=== PATIENT | male | born 1980 | race Caucasian/White ===

== ENCOUNTER 2019-01-01 09:00 | Outpatient (RCR) | payer OTHER, SELFPAY ==
--- NOTE | 2019-01-01 10:10 | BH.SGPN.GN ---
Behaviors/Verbalizations/Mental Status: [] Eye contact is good. Motor activity is appropriate. Appearance is causal. Speech is Appropriate. Mood is anxious. Affect is congruent. Thoughts are linear and logical. No evidence of psychosis. Client Response/Progress/Benefit: [] Pt was an active participant in group activity and discussion. Shared insight on quote of the day. Group worked together to define goals and identify the purpose of developing goals which included; identifying and making healthy changes or attempting to maintain a behavior. Group also identified barriers to setting and accomplishing goals which include; can be overwhelming, too much effort, fear of failure, and limited awareness of what to do or change. Attentive during education on developing SMART goals. Benefited from increase awareness of goal-setting methods. Will continue in PHP to prevent decompensation, stabilize anxiety, decrease intrusive thoughts, and improve daily functioning to return to work. Narrative Note: []
--- NOTE | 2019-01-01 10:18 | BH.DR.ITP ---
Initial Treatment Plan - Patient Information Visit Information: ADMISSION DATE: EXPECTED LOS: 4-6 weeks - Problems/Symptoms Problem #1:: Anxiety Symptom:: Rumination, obsessive worry over health Problem #2:: Depression Symptom:: anhedonia, decreased concentration
--- NOTE | 2019-01-01 10:20 | BH.PSY.EVA_ITS ---
Psychiatric Evaluation - Initial Evaluation Initial Evaluation: Chief Complaint: [Anxiety over health issues] History of Present Illness: [Patient is a 38-year-old male with a history of hypochondriasis, major depression, and anxiety who was recently admitted to [facility] for inpatient psych treatment from December 24 to December 30, 2018. At the time of his admission the patient had had severe obsessive anxiety over the possibility that he had colon cancer. This started after he had treatment for hemorrhoids. He continued to feel that he had colon cancer to the point where he became unable to function or function and was catastrophize and. He was unable to work since December 23 and even few weeks prior to that was unable to concentrate to do good work. Since his discharge he is improved but remains fixated on a slightly different symptom of pubic discomfort. This is replaced the obsession with having colon cancer. He currently lives in a house that he owns with his and 3 daughters. He has had episodes of hypochondriasis about 5 over the past 14 years. He states that his is tired of it and his marriage is a little law. For primary support he has his mother, brothers, father and occasionally his . Since his discharge he states that he knows that he does not have colon cancer. But he still has a sense of abdominal suprapubic discomfort that he is having a hard time not obsessing over. Currently he describes his mood as okay but disappointed that he has another symptom that he is worried over. He has moderate anhedonia and is enjoying very little of what he does currently. His appetite was decreased and like he lost 8 pounds over the past month or so but now that is stabilized and his appetite is better. His sleep was decreased but is much better since he was placed on Seroquel while in the hospital. He has low energy and his concentration is still not great. He does admit to guilt for putting his family through this. He denies any suicidal or homicidal thoughts. He denies any thoughts that he would not care if he got sick and . He denies any hallucinations delusions or history of yue. He has never been diagnosed with OCD and he denies any rituals. His obsessing is only now on his sense of pubic discomfort. He had panic attacks in the past but no panic attacks since his discharge from the hospital. He has still constant anxiety and worry over the above symptoms. He denies any eating disorder or PTSD ever. Denies any other stressors other than his worry over colon cancer followed now by his worry over his suprapubic discomfort. He denies any new stressors at work he works. 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 Denies any other stressors.] Current Psychiatric Medications: [He was on Lexapro but it was DC'd December 31, 2018 after being admitted. He is now on Prozac 40 mg p.o. daily, Neurontin 600 mg p.o. 3 times daily, Seroquel 200 mg p.o. nightly. He is been on these since his admission to the hospital. He also has Vistaril 50 mg 1 p.o. as needed but he rarely uses this.] Past Psychiatric History: His admission in December 2018 to [facility] is his first and only psych admission. He has no suicide attempts ever. He describes a history of these hypochondriasis episodes occurring about 5 times in the past 14 years. He did says his first episode was when he was in his mid 20s and his girlfriend at the time who is now his became . The patient had an HIV test at that time and he obsessed over whether he had AIDS. Other episodes since that first episode of revolved around a fear of having testicular cancer, fear of a brain tumor, and fear of colon cancer in 2016 also which was his most recent episode prior to the current one. He describes a history of being depressed off and on since his early teens and often this would occur after break-up with girlfriends. He describes a history of anxiety and separation anxiety even as young as kindergarten. He took his first psych meds during his early teens for depression and anxiety. He has had counseling off and on since age 5. The counseling at age 5 was for separation anxiety. The counseling is helpful often but not always. He states that his hypochondriasis episodes seem to be getting worse because the present episode is the worst one in the 1 and 2017 was the worst one prior to this. He has been on Xanax off and on in the past but none recently. He is been on Wellbutrin, Effexor, Pristiq, and Paxil in the past. Patient has never seen a psychiatrist until his admission to the hospital. He recently started seeing a therapist at [facility] named Fab Parks. He sees him weekly. Also taken Zoloft in the past. She does not wish to be on benzodiazepines because his mother was addicted to benzos in the past and required inpatient detox. Is any history of self-harm. [] Substance Use History: Used alcohol off and on since age 14. He has had no alcohol for the past 4 weeks. Prior to the past 4 weeks he had been drinking 2- 3 beers on a daily basis to cope with his increasing anxiety and was drinking even more on the weekends. His was concerned and he agreed and so he cut back on his drinking. He denies any withdrawal symptoms or any other issues with alcohol. He does not smoke marijuana and is a non-smoker of cigarettes. He denies any other drug use and is never been in rehab. [] Allergies: [] No known allergies Past Medical History: And has a history of an appendectomy in 2004, hernias twice in the past repaired surgically. He denies any other medical problems such as high blood pressure diabetes heart problems etc. and his medical history is negative. He has normal sexual function. Current Medications:[None no other meds besides his psych meds described below the present illness.] Family Psychiatric History: Mother has a history of anxiety and depression and panic attacks. She is now on Lexapro but in the past has been dependent on Xanax and Valium and had to be have inpatient detox. Brother with anxiety otherwise he states his family history is negative to any psych issues. No suicides in the family. No other substance issues in the family. [] Personal/Social History: [] She was born and raised by his biological parents. He had a loving childhood. He had no developmental delays or other issues. He had separation anxiety in kindergarten first grade which was significant for w [facility] she had counseling. He was a decent student graduated high school and went to [employer] where he got a BA in [employer]. 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 He in his mid 20s and is currently still . He says the marriage is law due to his anxiety and hypochondriasis. He is living in a house he owns with his and 3 daughters ages 13, 8 and 5. Patient is a heterosexual. He is a practicing Caodaism and his leisure studies professor is a supportive influence and on his life. Denies any history of sexual physical or verbal abuse. Legal History: [] Negative. No . Review of Systems: General review of systems includes weight loss and he does also have a pubic discomfort otherwise his complete review of systems is negative except as noted in present illness [] Vital Signs: [Signs blood pressure 140/90, respirations 16, pulse 80, afebrile.] Mental Status Examination: [] Patient is a 38-year-old male who appears normal for stated age. He is casually dressed and groomed with good hygiene. He has good eye contact and his speech is normal rate and rhythm with no pressure. His mood is depressed and anxious. His affect is constricted and flat at times and he appears somewhat anxious and nervous during the interview. His thought process is goal-directed and organized. His thought content: He obsesses over his suprapubic discomfort currently. He obsesses over whether he needs to get a work-up for this whether it could represent a an illness. He has no evidence of hallucinations or delusions. He has no evidence of homicidal or suicidal ideation or thoughts of self-harm. His intelligence is average or above. His concentration is decreased. His judgment is intact. His impulsivity is low to moderate and his insight is fair. 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 The risks options possible complications and side effects of his medications were discussed with the patient and he understands and accepts these. Because he is only been on the current medication regimen for a few days to less than a week we will continue the current medications at their current doses as he will not derive maximum benefit for another few weeks. He will continue to follow-up with his outpatient providers as scheduled. He currently feels safe and if he does not feel safe at any time he will contact the IOP or go to the emergency room. []
--- NOTE | 2019-01-01 11:20 | BH.SGPN.GN ---
Behaviors/Verbalizations/Mental Status: [Eye contact is good, at times appearing intense. Motor activity is appropriate. Appearance is casual. Grooming appropriate and neat. Speech has normal rate and tone. Mood is depressed, anxious. Affect is congruent. Thoughts appear ruminative and racing in nature. No evidence of psychosis. ] Client Response/Progress/Benefit: [Pt attentive throughout, contributed some, limited input to discussion, though engaged in creating own mental health SMART goal. Pt identified goal is to reduce by identifying and challenging 1-2 distorted thoughts daily over the next week. Pt reported this goal will benefit him by decreasing depression and anxiety, and challenging unrealistic thoughts about self/others. Pt identified potential barriers to accomplishing goal to include: unrealistic expectations, intrusive thoughts and distortions, and difficulties in identifying distortions. Pt reported he will overcome barriers by setting time aside for daily check-in and asking supports for help. Seemed to benefit from identifying a SMART goal and coming up with strategies to overcome potential barriers. Pt to continue PHP to increase consistent application of healthy coping skills, decrease depression and anxiety, maintain gains, and prevent decompensation.] Narrative Note: []
--- NOTE | 2019-01-01 15:20 | BH.MDN ---
Multi-Disciplinary Note - Note 60-min Individual Time Started:: 12:30 Date: 01/01/19 Purpose of session/treatment goals addressed:: Utilized the session to begin to develop treament plan, obtain more detail history, and discuss current symptoms/functioing. Eye Contact:: Good Motor Activity:: Restless Appearance:: Casual Speech:: Appropriate Mood:: Anxious Affect:: Congruent Thoughts:: Linear, Logical, No evidence of hallucinations/delusions noted Staff Interventions:: Utilized UT techniques to elicit change behaviors. Introduced radical acceptance strategies. Education on toxic worry. Provided handouts to further clarify tx plan goals. Client Response:: Pt reports that his anxiety began to increase within the last 30 minutes. He can not identify any trigger. Fearful that he is regressing as he reports that he has begun to have intrusive and ruminating thoughts about low stomach pain. He states that he is no longer concerned about colon cancer which was what lead to overwhelming anxiety for the past few months and is focusing on new pain. Pt is very knowledgable about CBT, distortions, and actually keeps a thought log. He finds that this is helpful at times however admits that he has lost hope in CBT methods. Most distressing ruminations and intrusive thoughts focus on health however in talking with him he also appears to ruminate quite extensively on several others topics including mental health stigma, his children, and possible future scenarios. Hopless that he will never get back to functioning at baseline. Sees his mental health as a weakness. Risks/Concerns:: No risks or concerns noted. Denies suicidal ideations, plan, intent, or history of attempts. Progress Toward Goals/Plan:: Limited progress as this was first day in [facility]. Symptoms continue cause significant stress throughout the day and are impacting functioning. Ruminating which is impacting his relationships, social functioning, and is unable to work. Restless and hopeless that he will never get back to baseline. States often why can't I stop these thoughts. Appears frustrated and distressed. Will continue in PHP to stablize mood, decrease instrustive thoughts, prevent decompensation, and improve daily functioning. Time Stopped:: 13:30
--- NOTE | 2019-01-02 09:00 | BH.SGPN.GN ---
Behaviors/Verbalizations/Mental Status: [] Eye contact is good. Motor activity is appropriate. Appearance is neat. Speech is Appropriate. Mood is anxious. Affect is congruent. Thoughts are linear and logical. No evidence of psychosis. Reviewed daily check in sheet and no reports of suicidal ideations or intent. Client Response/Progress/Benefit: [] Pt participated in group discussion at times. Emotion for today is anxiety. States I'm not doing horrible. Stated that he tried to fight off the negative thoughts yesterday and managed to succeed at times. Used several war analogies regarding his thoughts being a cardoso. Able to complete some chores like mowing the lawn and cooking. Struggles when he is alone with his thoughts. Emotion in uncertainty. Restless. Often rubs his face and head. Attempting numerous distraction techniques such as writing to get his thoughts and emotions out. Progress noted per pt. Will continue in PHP to prevent decompensation, decrease intrusive thoughts, and improve daily functioning. Narrative Note: []
--- NOTE | 2019-01-02 10:00 | BH.SGPN.GN ---
Behaviors/Verbalizations/Mental Status: []Eye contact is fair. Motor activity is appropriate. Appearance is causal. Speech is Appropriate. Mood is anxious and depressed. Affect is constricted. Thoughts are linear and logical. No evidence of psychosis. Client Response/Progress/Benefit: []Pt responded well to session AEB pt listening attentively to others and contributing to discussion at times. Pt connected with peers during discussion about common unhealthy skills that are often used to manage stressors and mental health. Pt agreed with peers that he uses overanalyzing and ruminating as unhealthy coping skills. Worked with group to identify the following strategies to be helpful with increasing healthy coping skills: self-awareness, stopping self and using healthy skill, practicing new skills, and motivation. Pt able to make connections when processing group activity about importance of creating a stable base of healthy coping skills. Pt seemed to benefit from increased awareness of benefits of using healthy coping skills and understanding importance of having balance between internal and external coping skills. Pt to continue IOP level of care to maintain safety, increase healthy coping skills, and prevent decompensation. Narrative Note: []
--- NOTE | 2019-01-02 11:02 | BH.SGPN.GN ---
Behaviors/Verbalizations/Mental Status: []Client alert and oriented, neatly dressed and groomed. Eye contact good. Motor activity appropriate. Speech within normal limits. Affect flat, mood anxious. Thoughts linear, logical, no signs of hallucinations or delusions. Client Response/Progress/Benefit: []Client responded well to session, engaged throughout and providing ideas during group brainstorming. Client appeared to connect with the activity from second group and helped the group identify benefits of having a strong foundation of internal and external coping skills. Client shared he is more ?external dependent? and that he can improve internal coping skills. Client attentive during group discussion of the different categories of coping skills and was taking notes on examples. Client agreed with peers that it is important to have a variety of coping skills and recognized it will take time to replace unhealthy coping skills. Client created a coping skills ?menu? from the five categories of coping skills. Client selected exercise, talking with supports, 5-senes, prayer, affirmations, and thought logs as coping skills he would like to try. Client appeared to benefit from increasing his repertoire of healthy coping skills. Progress noted in client?s increased self-awareness. Client will continue PHP as his symptoms continue to interfere with his ability to function at his baseline.
--- NOTE | 2019-01-02 14:06 | BH.PSA_ITS ---
Source of Information - Presenting Problems/Circumstances Problems, Referral Source, Mental Status, Client: Referred by [facility]. Alert and oriented. Affect is anxiety. Mood is congruent. No yue. Somatic delusions related to healthy anxiety. Convinced that he had cancer. Intrusive and obessive thoughts about health which have impacted daily functioning. Psychiatric Presentation - Psych Issues & Need for Admission Psychiatric Issues:: Health anxiety, intrusive thoughts, obesssive thoughts, depression, Past Psychiatric History - Treatment Hx First hospitalization:: [facility] 12/24/18-12/30/18 Most recent hospitalization:: refer above Medication Trials:: No ECT Therapy:: No Age of first mental health symptoms: Reports significant separation anxiety at age 4 which led to counseling. Notes hx of anxiety for most of his life. Describe (age, circumstance, etc) any past hospitalizations: Admitted to [facility] due to instrusive thoughts, health anxiety, and depression which were interfering with functioning. Current providers for mental health treatment (counselor, psychiatrist, social work case manager, etc.): Fab Osborn- therapist, [facility] ([place]) & Family of Origin - Childhood Significant Childhood Events: none reported - Family Who currently lives in your home?: Currently lives with his and 3 daughters (13,8,and 5) - Family History Family Hx of Psychiatric or AOD Problems: Mother- anxiety and depression, previous psych hospitlization. Brother- anxiety Ethnicity - Culture Do you identify yourself with any particular cultural, ethnic background, or community?: Yes - Sexuality Sexual Orientation: Heterosexual Spirituality - Jain Do you currently identify with any organized jainism?: Rastafari - Beliefs Is there a particular form of support from this community you can use for your recovery?: Yes Mental Status - Memory Recent Memory: Good Remote Memory: Good - Concentration Concentration: Poor - Eye Contact Eye Contact: Fair - Speech Speech: Articulate - Thought Process Thought Process: Obsessions Insight: Poor Judgment: Poor Delusions: Somatic Behavior: Anxious - Orientation Orientation: Time, Person, Place, Situation - Appearance Appearance: Appropriate - Mood Mood: Anxious - Affect Affect: Alert Suicide Assessment - Suicidal Ideation Have you ever felt like hurting yourself?: No Please explain:: Per H/P from [facility] pt reports fleeting SI with thoughts of methods to OD on medications. Pt denies this. Reports some passive thoughts about however adamantly denies suicidal ideations, plan, or intent. Were you using ETOH/drugs at the time?: No Suicidal Intentional Rating Scale (SIRS): Suicidal thoughts (past) Physician Notification: If Active suicidal thoughts/Will not contract for safety is checked, contact physician and document in the Physician Notification section below. Violent Behavior/Abuse History - Homicidal Ideation Do you have any homicidal thoughts? If so, explain:: No Is there a known potential victim? If yes, who:: No - Abuse Have you ever been abused?: No - Life Events Are there any other significant life events?: Hardships - Recent mental health decompensation has resulted in relationship conflicts with . - Safety Do you ever feel threatened in your home? If yes, describe:: No Adult Social History - Age 16 to Present Describe your current support system:: Mother and 2 brothers are primary support. Substance Use - Substance Substance Use Type: Alcohol - Specific Drugs What specific drugs have you used?: Alcohol - Extent of Use What quantity of substances have you used?: Used alcohol on and off since age 14. Prior to admission was drinking 2-3 beers daily - Duration of Use How long have you used substances?: since age 14 - Last Usage What is the date and situation you last used?: Sober for past 4 weeks. 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 If yes, describe:: No - Court Orders Have you had any past court orders for psychiatric treatment?: No Do you have a present court order for psychiatric treatment?: No Problem Checklist - Current Problem Areas Problem List: Depressed mood/sad, Anxiety Discharge Planning Needs - Anticipated Follow-Up Mental Health Center (Name/Phone Number):: n/a Private Therapist/Psychiatrist:: Fab Osborn- therapist Other (to be determined): Dr. Ann Dimas- psychiatrist, upcoming intial appt Primary Care Physician: Micah Berg Family and Caregiver Contacts:: Kacie Ray- . Anupama Ray- mother Release of Information Signed:: Yes Community Agency Contacts: n/.a [employer] Name/Phone Number: n/a Channel Sales Director's Assessment - Client's Needs What are the client's feelings about the program?: Ambivalent about group counseling however I'm willing to try anything. What are the client's goals?: Develop and strengthen tools to manage stress/anxiety What are the client's strengths?: intelligent, organized, appears motivated Diagnoses - Diagnoses Diagnosis #1:: MDD f33.2` Diagnosis #2:: Illness Anxiety Disorder F45.21 Interpretive Summary - Interpretive Summary Interpretive Summary: Pt is a 38 year old male with hx of MDD, LINDSEY, and Hypochrondriasis. Recently discharged from [facility] on 12/30/18. Was admitted on 12/25/18 due to worsening severity of obsessive intrusive thoughts reagrding his health, specifically that he has cancer. Anxiety led to depression, crying spells, decreased sleep, decreased appetite, and impaired functioning. Has not been able to function at home or work due to obsessive thoughts. Convinced that he has colon cancer despite physicians and diagnostic tests indicating no concern. Poor energy, poor concentration, decreased motivation, decrease in ADLs, panic attacks, and poor appetite. Denies HI or psychosis. Denies substance abuse. Denies sucidal ideations, plan, or intent. No hx of attempts. Per [facility] pt disclosed fleeting thought to OD on medications. Pt denies this was suicidal ideation just fleeting passive thoughts. Treatment Plan Recommendations - Recommendations Guidelines: Special needs identified to be included in the development of an individualized treatment plan regarding past psychiatric history and treatment, developmental events, family relationships/events/culture, past and/or current educational, occupational, social, and residential experience, and legal status. Recommendations:: Due to recent hospitaliztion, actue exacerbation of symptoms, severe health anxiety, and MH symptoms interfering with familial, social, and work functioning recommended PHP to stablize.
--- NOTE | 2019-01-02 14:07 | BH.MTP ---
Master Treatment Plan - Patient Information Program Physician:: Dr. Briseyda Basilio Primary Therapist:: Mauro Branch - Psychiatric Diagnoses Psychiatric Diagnoses:: MDD, recurrent, severe w/o psychosis. Illness Anxiety Disorder. LINDSEY Diagnosis Code(s):: f33.2; f45.21 - Estimated LOS Estimated LOS (in weeks):: 2 Problem/Goal #1 - Problem/Goal #1 Stated Goal:: Client will reduce overall frequency, intensity, and duration of the anxiety so that daily functioning is not impaired. Description of Barriers: Stigma, relationship conflicts, lack of patience, needs constant reassurance, Functional Impact: Intrusive thoughts and health anxiety have significantly impacting his social, familial, and work functioning. Led to hospitalization and inability to complete work responsibilities. - Objectives Objective #1 Stated Objective: Client will learn and implement 2-3 calming and acceptance skills to reduce overall anxiety and manage anxiety symptoms. Interventions: Therapist will teach client calming, mindfullness, and radical acceptance skills and assign client homework which practices relaxation skills daily. Discharge Criteria: Client will have achieved this goal when can verbalize at least 2 calming, mindfulness, and radical acceptance skills and implement those skills. Target Date: 01/15/19 Review Date: 01/15/19 Objective #2 Stated Objective: : Client will learn and implement 2-3 problem solving strategies to realistically addressing worries Interventions: Therapist will teach client problem-solving and CBT strategies involving defining a problem, brainstorming solutions, selecting and implementing realistic solutions to decrease excessive worrying. Discharge Criteria: Client will have achieved this goal when can verbalize at least two problem solving and CBT strategies and utilize the strategies to realistically address worries. Target Date: 01/15/19 Review Date: 01/15/19 Problem/Goal #2 - Problem/Goal #2 Stated Goal:: Client will decrease depression, feeling of worthlessness, and hopelessness due to Major Depression Disorder through Intensive Outpatient Program. Description of Barriers: Stigma, decompensation has led to hopelessness, relationship conflicts, poor self-esteem. Functional Impact: Anxiety lead to depression, hopelessness, and fear of failure which exacerbate anxiety and functioning. - Objectives Objective #1 Stated Objective: Identify and replace 3-4 negative self-talk messages that reinforce depressive symptoms. Interventions: Therapist will help client identify distorted, negative beliefs about self and world and replace those messages with positive, affirmative messages. Discharge Criteria: Client will have achieved this goal when can identify at least 3 negative self-talk messages and replace those messages with positive, affirmative messages. Target Date: 01/15/19 Review Date: 01/15/19
--- NOTE | 2019-01-02 14:07 | BH.MDN ---
Multi-Disciplinary Note - Note 45-min Individual Time Started:: 12:15 Date: 01/02/19 Purpose of session/treatment goals addressed:: Reviewed progress and current symptoms. Developed treatment plan goals. Provided education and discussion on instrusive thoughts. Eye Contact:: Good Motor Activity:: Restless Appearance:: Neat Speech:: Appropriate Mood:: Anxious, Irritable Affect:: Congruent Thoughts:: Linear, Logical, No evidence of hallucinations/delusions noted Staff Interventions:: Utilized MD techniques to elicit change behaviors. Reviewed treatment plan worksheet. Provided educational handout on intrusive thoughts. Client Response:: Pt reprorts that yesterday afternoon and evening went well. Reports that he had several hours of feeling back to normal. Could not pinpoint what he did differently to decrease his anxiety and intrusive thoughts. Reports that he cut the grass, played a game with kids, and completed some battery charger. In talking in appears pt tried some opposite actions, radical acceptance, and thought-stopping skills. Pt reports I felt the discomfort however I was able to accept and move on. Also reported that he did not call his mother for reassurance this AM. Progress noted. He notes today he is back to intrusive thoughts on somatic distress. Frustrated. Feels like he is failing. Pointed out that he had instrusive thoughts yesterday AM and was able to manage and feel better in the afternoon. More hopeful however instrusive thoughts occured since he woke up this AM and continue. Completed tx plan worksheet. Goals are to develop and strengthen coping skills to manage anxiety. Risks/Concerns:: no risks or concerns noted. Progress Toward Goals/Plan:: Progress noted last night, however reports instrusive thoughts and severe anxiety again this AM. He discussed how these thoughts have impacted his functioning at work and how they have impacted his relationship with and kids. Often seeks reassurance and is uncomfortable with uncertainy and lack of control. Progress noted last night, however symptoms continue to impact functioning today . Will continue in PHP to prevent decompensation and improve functioning. Constant intusive thoughts about health continue to significantly interfere with functioning and cause distress. Time Stopped:: 13:00
--- NOTE | 2019-01-03 09:00 | BH.SGPN.GN ---
Behaviors/Verbalizations/Mental Status: [] Eye contact is good. Motor activity is appropriate. Appearance is casual. Speech is Appropriate. Mood is anxious. Affect is congruent. Thoughts are linear and logical. No evidence of psychosis. Reviewed daily check in sheet and no reports of suicidal ideations or intent. Client Response/Progress/Benefit: [] Pt was an active participant in group discussion. Pt reports that yesterday was relatively difficult for most of the day. Did accomplished some normal behaviors such as going to parent-teacher conference. States that he returned to his office not to work but to get accustomed to it. Talked with some co-workers. Discussed that he understands that there are people in the community that know that he went to the psychiatric unit. He denies stigma however may be minimizing. Asked several questions to peers regarding breathing techniques and mindfulness. Provided feedback to peers. Discussed intrusive thoughts and intense anxiety this AM. Reports that he had to take a PRN medication. Notes that mornings are the most challenging stating I wake up and I'm aware of how bad things have been. This thinking impacts his mood in the AM. Reports that he is writing his thoughts in his journal throughout group which helps him process. No progress noted. Will continue in PHP to prevent decompensation, decrease intrusive thoughts, increase functioning, and increase coping skills for anxiety. Narrative Note: []
--- NOTE | 2019-01-03 10:47 | BH.NA_ITS ---
Physical Data - Height/Weight Height: 1.78 m Weight:: 81.647 kg Weight in Pounds: 180.0 lbs Current Medication Compliance - Medication Compliance Do you take your medication as prescribed?: Yes Do you need assistance with taking medication?: No Have you had side effects from medication?: No Nutritional History - Appetite Nutritional Instructions:: If client shows signs of a swallowing problem, weight change of 10 pounds or more in the last month, or is on a diabetic diet, the physician will review and request a dietitian consult, as appropriate. All unintentional weight loss will be referred to the physician for decision on need for dietitian consult. Describe your appetite:: Good Have you noticed a change in your eating habits lately?: Yes - had been losing weight, but has plateaued Functional Assessment - Sleep Pattern Describe any problems with sleeping: Endorses difficulty falling and staying asleep most nights. - Activities Motor Activity:: Functional Sensory/Communication Assess - Dental Problems Do you have any dental problems?: None - Vision Problems Do you have any vision problems?: None - Hearing Problems Do you have any hearing problems?: Adequate - Communication Problems Do you have difficulty understanding what people are saying?: No Do you have trouble putting your thoughts into words or expressing what you want to say?: No Do people ever have trouble understanding what you say?: No What is your primary language?: Yoruba Learning Assessment - Learning Barriers Learning Barriers:: Ready to learn Medical Problems/History - Pain Assessment Do you have acute or chronic pain?: No Surgical History - Surgical History Have you had any surgeries? If so, list type and date:: No Substance Abuse - Substance Abuse Please describe substance abuse in the last 30 days:: Client notes recent ETOH misuse which he abruptly stopped 6 weeks ago - was drinking 2-3 daily and more on weekends. Denies tobacco and illicit substance use. Minimal caffiene intake. Mental Status Summary - Mental Status Significant Findings/Observations on Appearance and Mood:: Paddy is A&Ox4, cooperative, and makes good eye contact. He is neatly dressed with good hygiene and appropriate grooming. Speech is clear and of normal rate and volume. Moderate anxiety. Mood congruent affect. Client notes severe anxiety about medical issues and directs the conversation to this topic often. Normal process. Fair knowledge and limited insight. Delusions and preoccupation with having colon cancer, despite medical diagnostics and lack of physical symptoms. Endorses some passive thoughts of , but denies SI, HI, and hallucinations. Suicide Assessment - Suicidal Ideation Are you currently or have you been suicidal in the past?: No Suicidal Intentional Rating Scale (SIRS): No suicidal thoughts (past or present) Physician Notification: If Active suicidal thoughts/Will not contract for safety is checked, contact physician and document in the Physician Notification section below. Past Psychiatric History - MH Treatment Hx Past Psychiatric Medications:: Wellbutrin, Effexor, Pristiq, Paxil, Lexapro ECT Therapy Details:: N/A Describe (age, circumstance, etc) any past hospitalizations: 12/24-12/30/18: [place] Fall Risk Assessment - Age Age: Less than 60 - Mental Status Mental Status: Willing & able to ask for assistance when needed - Physical Status Physical Status: No problems - Impairments Impairments: None - Elimination Elimination: Continent AND independent - Gait or Balance Gait or Balance: Walks independently - Hx of Falls History of falls in the past 6 months: No known history - Medications/Substances Psychotropics:: Antidepressants, Antipsychotics, Anxiolytics (e.g. benzodiazepines) Medications/substances used within the past 24 hours or ordered to administer: 3 or more of the medications/substances listed above - Total Score Total Points:: 2 Physician Notification - Physician Notification Physician Notified: Briseyda Lee Method of Notification: Face to Face Comments: treatment planning discussion RN Summary of Impressions - Impressions Recommendations: Include psychiatric and medical issues, treatment planning recommendations, and discharge planning needs. Impressions: Psychiatric Issues: MDD, recurrent/severe, hypochondriasis Impression: General Medical Conditions: LINDSEY Impressions: Treatment Planning Recommendations: Client will need connected with outpatient therapist and possibly psychiatrist (or PHYSICAL THERAPIST) for medication management. - Level of Care How do the client's current symptoms and functional deficits support need for this level of care?: Paddy notes that his mental health has been decompensating for several months after the thought occurred to him that he might have colon cancer. He notes that these thoughts started after he experienced some abdominal pain and have progressively intensified to the point that he is consumed with thoughts, despite diagnositic testing and lack of evidence that he is not ill. He obsessive thoughts and rumination have caused discord in his marriage, lack of appetite with weight loss, inability to concentrate, difficulty managing work responsibilities, and restless sleep. Client notes a long history of catastrophizing and having unfounded medical anxiety and health obsession for years, but has always been able to manage his symptoms. He also describes daily drinking, which he notes is out of character for him, as a way to cope with his anxiety - sober 6 weeks. Paddy notes that he has had passive thoughts of due to feeling overwhelmed, but denies suicidal ideations. PHP and IOP will provide skills trianing and social support to promote gains and prevent further decompensation.
--- NOTE | 2019-01-03 11:15 | BH.SGPN.GN ---
Behaviors/Verbalizations/Mental Status: []Client alert and oriented, neatly dressed and groomed. Eye contact good. Motor activity appropriate. Speech within normal limits. Affect congruent, mood anxious. Thoughts linear, logical, no signs of hallucinations or delusions. Client Response/Progress/Benefit: []Client was an active participant in group discussion, contributing to discussion and listened attentively to others. Completed worksheet and willing to share with the group. Client reported belief he is between chapters 2 and 3? as client shared he has some self-awareness, but continues to fall in the anxiety trap and over relies on his supports to get him out of anxious patterns. Client shared to get to the next chapter he wants to focus on the positive, set SMART goals, and remind self this is an opportunity to get better. Stated he recognizes even when struggling there is a way to improve himself and get better. Benefited from group by identifying thoughts and behaviors that have kept him stuck and developing plan to promote progress. Will continue in PHP to decrease anxiety, improve helathy coping skills, and prevent decompensation. Narrative Note: []
--- NOTE | 2019-01-03 13:14 | BH.MDN ---
Multi-Disciplinary Note - Note 45-min Individual Time Started:: 12:15 Date: 01/03/19 Purpose of session/treatment goals addressed:: Reviewed progress and current symptoms. Introduced new coping strategies to address instrusive thoughts which have led to panic, severe anxiety, and inability to function. Eye Contact:: Good Motor Activity:: Restless Appearance:: Neat Speech:: Appropriate Mood:: Anxious Affect:: Congruent Thoughts:: Linear, Logical, No evidence of hallucinations/delusions noted Staff Interventions:: Utilized [place] techniques to elicit change behaviors. Provided education on radical acceptance, distress tolerance, and mindfullness skills. Encouraged patient to continue with reading assignments. Client Response:: Reports that he had some wins yesterday however again anxiety, ruminations, and instrusive health anxiety significantly impacted his functioning and mental health. Reports frustration as he continues to fight these thoughts with his thought record and CBT strategies with limited benefit. Reports strong desire to be in control of his thoughts, emotions, and actions and feels like a failure when he cannot do this. He was open to discussion on radical acceptance, distress tolerance, and mindfulness strategies to add to his current coping strategies. Briefly discussed the assigned reading on intrusive thoughts yesterday however he did not complete much of the reading. Reports that discussion with program nurse also helped dispel some of his healthy anxiety. Risks/Concerns:: No risks or concerns noted. Progress Toward Goals/Plan:: Limited progress noted. He reports intermittent decrease in intrusive thoughts , ruminations, and distress yesterday which occurs in context of oppositie actions. He had to take a Vistaril this AM on his way to [facility] due to anxiety. Functioning and relationships continue to be impacted due to distress related to anxiety and instrusive thoughts about medical concerns. Will continue in [facility] to prevent decompensation and readmission, increase coping strategies, and improve daily functioning. Time Stopped:: 13:00
--- NOTE | 2019-01-06 09:00 | BH.SGPN.GN ---
Behaviors/Verbalizations/Mental Status: [] Eye contact is good. Motor activity is appropriate. Appearance is neat. Speech is Appropriate. Mood is anxious. Affect is congruent. Thoughts are linear and logical. No evidence of psychosis. Reviewed daily check in sheet and no reports of suicidal ideations or intent. Client Response/Progress/Benefit: [] Pt participated at times during group discussion. Emotion for today is anxious. Notes some mental health wins over the weekend noting increased functioning, mood, and confidence on Sunday night and through most of Sunday. He cannot identify anything that he did differently however in discussing the events it appears as if acceptance and some thought stopping proved effective. Reports that Sunday was very challenging due to intrusive thoughts regarding his health. Ruminated and impacted functioning. Did not utilize any skills when overwhelmed. Group provided support and feedback which was beneficial. Limited progress. Pt still struggling with intrusive thoughts and implementing any skills. Will continue in PHP to prevent decompensation, stabilize mood, and increase functioning to return to work. Narrative Note: []
--- NOTE | 2019-01-06 10:10 | BH.SGPN.GN ---
Behaviors/Verbalizations/Mental Status: []Client alert and oriented, neatly dressed and groomed. Eye contact good. Motor activity appropriate. Speech within normal limits. Affect constricted, mood anxious. Thoughts linear, logical, no signs of hallucinations or delusions. Client Response/Progress/Benefit: []Pt engaged in session as evidenced by pt providing input throughout session and listening attentively to peers. Pt connected with peers about sometimes defining himself by his mental illness. Pt stated he engages in self-stigma by believing this is just me which makes him think there's nothing he can do to improve his life. Pt stated mental health stigma can keep him stuck from moving forward. Pt worked cooperatively with small group to identify various myths and facts about mental illness. Pt seemed to benefit from increased awareness of impact societal and self-stigma has on progress. Progress noted with increased self-awareness of distorted thought patterns. Pt to continue PHP level of care to decrease anxious thought patterns, continue use of healthy coping, and prevent decompensation. Narrative Note: []
--- NOTE | 2019-01-06 11:14 | BH.SGPN.GN ---
Behaviors/Verbalizations/Mental Status: []Client alert and oriented, neatly dressed and groomed. Eye contact good. Motor activity appropriate. Speech within normal limits. Affect flat, mood dysthymic, anxious. Thoughts linear, logical, no signs of hallucinations or delusions. Client Response/Progress/Benefit: []Client responded well to session, active participant and attentive throughout. Group identified the benefits of addressing stigma which included; increased self-confidence, feeling accepted, improved relationships, and less self-deprecation. Client helped the group identify thoughts and behaviors people engage in that reinforce stigma. Client reported he uses his symptoms as excuses and reasons not to change which reinforces stigma in his life. Group brainstormed strategies to combat social and perceived stigma which included; talking to supports, practicing positive self-talk, not using labeling language, and providing psychoeducation. Client reported he will practice self-acceptance and thought challenging to combat stigma. Appeared to benefit from increasing awareness of ways he reinforces stigma and how to combat stigma. Will continue IOP tx to prevent decompensation of anxiety symptoms and improve daily functioning.?
--- NOTE | 2019-01-06 13:05 | BH.MDN ---
Multi-Disciplinary Note - Note 45-min Individual Time Started:: 12:15 Date: 01/06/19 Purpose of session/treatment goals addressed:: Reviewed current symptoms and progress in PHP. Addressed treatment plan goals 1 and 2. Eye Contact:: Poor Motor Activity:: Restless Appearance:: Casual Speech:: Appropriate Mood:: Anxious Affect:: Congruent Thoughts:: Linear, Logical, No evidence of hallucinations/delusions noted Staff Interventions:: utilized MO techniques to elicit change. Reviewed and processed recent events that lead to panic and ruminations. Reviewed homework and assigned more reading on instrusive thoughts. Client Response:: Pt shared that he had a break down last evening in which he had a panic attack, crying spell, and reached out for reassurance. Trigger was intrusive thoughts about pelvic discomfort. He views this as a failure which has triggered beleifs that he will never be normal again. Significant ruminations and anxiety. Processed the event and identified areas where he could have utilized skills to lessen worry and anxiety. Reframed the event as well. Overwhelming anxiety only lasted 1.5 hours and he was eventually able to manage. This was first significant event since his discharge. Unrealistic expectations to be normal and free from anxiety. Reports that he set an appt with his PCP tomorrow to be evaluated for his discomfort. Unsure if he will be able to accept what the physician tells him and also anxious that he will get bad news of a terminal illness. Pt states I'm also anxious about my anxiety. Sunday and Sunday were reportedly good days however he states I started to think that I'd better get back to it (worrying). Risks/Concerns:: No risks or concerns noted. Progress Toward Goals/Plan:: Limited progress as anxiety and intrusive thoughts about health continue to impact daily functioning. Utilizes thought challenging with limited benefit. Introduced radical acceptance and mindfullness skills as more coping skills. Is making progress AEB decrease in frequency and severity of anxiety epsiodes however anxiety continue to impact his relationships and his overall mental health.Will continue in PHP to prevent decompensation, increase coping skills, and improve daily functioning to return to work. Time Stopped:: 13:00
--- NOTE | 2019-01-07 10:18 | BH.COMM_ITS ---
Communication Note - Communication with Client Communication Note: pt did not attend PHP today as he had two medical appo intments that conflicted with PHP. Plan is to return tomorrow.
--- NOTE | 2019-01-07 10:18 | BH.COMM ---
Communication Note - Communication with Client Communication Note: pt did not attend PHP today as he had two medical appointments that conflicted with PHP. Plan is to return tomorrow.
--- NOTE | 2019-01-08 09:05 | BH.SGPN.GN ---
Behaviors/Verbalizations/Mental Status: []Client alert and oriented, neatly dressed and groomed. Eye contact fair. Motor activity appropriate. Speech within normal limits. Affect constricted, mood dysthymic. Thoughts linear, logical, no signs of hallucinations or delusions. Reviewed client?s symptom tracker, no risk for suicidal ideation, plan, or intent as of 01/08/19. Client Response/Progress/Benefit: []Client responded well to session, quiet, but participating when prompted. Client reports feeling ?hopeful? today after receiving supportive statements from peers. Client shared she has been struggling with feeling guilty about ?ruining? his children?s life. The group helped client gain insight that he is being too hard on himself and using distorted thinking. Client appeared to benefit from the group support and gentle thought challenging. Client able to identify his mental health wins today which included spending more time at his office, interacting with others, and going on a bike ride with his family. Client stated when he exercises the intensity of his anxiety decreases. Client to continue PHP tx to prevent decompensation, improve daily functioning, and reduce intensity and duration of anxiety.
--- NOTE | 2019-01-08 10:15 | BH.SGPN.GN ---
Behaviors/Verbalizations/Mental Status: []Client alert and oriented, neatly dressed and groomed. Eye contact good. Motor activity appropriate. Speech within normal limits. Affect constricted, mood anxious. Thoughts linear, logical, no signs of hallucinations or delusions. Client Response/Progress/Benefit: []Pt engaged in session AEB pt providing input throughout discussion and listened attentively to peers. Pt reported he sees the term perspective as a positive because when he gains perspective he has clarity for a situation. Pt engaged in discussion about the impact perspective can have on mental health. Pt agreed when feeling anxious his perspective can be negative, which exasperates his symptoms. Pt seemed to benefit from increased awareness of impact perspective has on mental health. Progress noted with increased self-awareness of maladaptive coping and thinking patterns. Pt to continue PHP level of care to increase use of healthy coping, continue to learn strategies to manage anxious symptoms and prevent decompensation. Narrative Note: []
--- NOTE | 2019-01-08 11:20 | BH.SGPN.GN ---
Behaviors/Verbalizations/Mental Status: [Client alert and oriented, casually dressed and neatly groomed. Eye contact good. Motor activity appropriate. Speech within normal limits. Affect congruent, mood depressed, anxious. Thoughts linear, logical, no signs of hallucinations or delusions. ] Client Response/Progress/Benefit: [Client responded well to session, attentive and engaged during small group session. A times pt appearing to struggle with attentiveness due to appearing distracted by own thoughts throughout discussion. Group discussed the mental health benefits of recognizing strengths which included; improved self-esteem, better relationships, increased hope, decreased anxiety, and willingness to ask for help. Group identified the barriers that have prevented them from acknowledging their strengths and successes. These barriers included; negative thoughts, feeling like a burden, fear of being judged, and past experiences. Group identified strategies to overcome barriers that prevent them from seeing strengths. These strategies included; keeping track of ?wins?, challenging negative thoughts, using affirmations, and reaching out to supports to challenge perspective when needed. Client initially hesitant to share, but was able to identify personal strengths he possesses, which included; intelligence, motivation, positive supports, and ability to follow through. Appeared to benefit from recognizing personal strengths and identifying strategies to overcome barriers. Will continue PHP tx to improve mood stability, further increase healthy coping skills for managing depression and anxiety, and prevent decompensation.] Narrative Note: []
--- NOTE | 2019-01-08 11:42 | PCM.BH.PN_ITS ---
Progress Note Progress Note: [] History of Present Illness/Interim History: [] Patient is a 38-year-old male with history of hypochondriasis, major depressive and anxiety who is currently participating in the partial hospitalization program at the [facility]. I saw him a week ago for his i nitial evaluation. Patient states that he is still ruminating and obsessing over his pubic discomfort. He would say that his mood might be slightly less depressed and his anxiety might be a little less. He says that he has been told he is improving but he has a hard time appreciating this. He describes still ruminating all day on his health issues in his pubic discomfort. He did see his PCP for this complaint yesterday and the primary care doctor is not alarmed by his symptoms. This gave him a little relief but the patient says that he still feels and is obsessing that he needs a CT scan to rule out the cause of his pubic discomfort. His sleep is better overall he states. Home is not great but his is supportive of him at times. He only woke up one time during the night with bad panic and anxiety in the past week. He feels that he is benefiting from the IOP program and he really wants to start living his life. Is been compliant with his medications. He is not using the Vistaril very often. Current Psychiatric Medications: [] Prozac 40 mg p.o. daily (started about 10 days ago). Seroquel 200 mg p.o. nightly, Neurontin 600 mg p.o. 3 times daily, Vistaril 50 mg p.o. as needed but not using it much. Review of Symptoms: [] Negative except as noted in present illness Mental Status Examination: [] Patient is a 38-year-old male who appears normal for stated age and is casually dressed and groomed with good hygiene. He has no psychomotor agitation or retardation. Speech is normal rate and rhythm, fluent with no pressure. Eye contact is good. Mood is depressed and anxious. Affect is constricted and consistent with the above. Thought processes organized and goal-directed. Thought content shows evidence of continued of session over having an illness or issue that is causing his pubic discomfort. No evidence of suicidal or homicidal ideation. No evidence of hallucinations or delusions. Reality testing intact. Concentration improving but little decreased still. Impulsivity low judgment intact. Insight some present. 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 The risks options possible complications and side effects of his medications were discussed with the patient and he understands and accepts these. We will leave the medication regimen the same as he is only been on these meds for 10 days now. He will continue to follow-up with his outpatient providers as scheduled. If it any time he does not feel safe he will contact the IOP or go to the emergency room. See the patient in 1 week as long as he is in the PHP program.
--- NOTE | 2019-01-08 15:48 | BH.MDN ---
Multi-Disciplinary Note - Note 45-min Individual Time Started:: 12:30 Date: 01/08/19 Purpose of session/treatment goals addressed:: Reviewed current symptoms and progress in [facility]. Adressed treatment goals 1 and 2. Eye Contact:: Good Motor Activity:: Restless Appearance:: Casual Speech:: Appropriate Mood:: Anxious Affect:: Congruent Thoughts:: Linear, Logical, No evidence of hallucinations/delusions noted Staff Interventions:: Provided education on cognitive-behavioral Model of hypochondriasis. Challenged irritational thoughts and cognitive distortions (all or nothing thinking) Pointed out improvement and positives Client Response:: Pt notes that he had an appointment with his PCP yesterday regarding his discomfort which he has been ruminating on. PCP was not concerned with it. Despite reassurance pt continues to ruminate and report thoughts that he has cancer. Pt has not completed reading assigments on intrusive thoughts. Pt beleives that he is failing however when asked about his anxiety symptoms yesterday he reported 8 hours of feeling normal and completing activities with his children (ice cream, bike riding). Notes bouts of intrusive thoughts however was able to accept and move on. All or nothing thinking continues to cause pt to beleive he is a failure. He reports that he is begining to see the benefits of radical acceptance and the idea that his thoughts are not facts or the truth. Wrote in his journal some insightful and positive perspectives on his thoughts and future. Was attentive during education and conversation on cognitive-behavioral model of hypochondariasis. Able to admit that he may be misinterpreting or exagerating his somatic issues. Also able to admit his anxiety and stress could be causing some physiological symptoms which he reports is a big step for him. Progress noted. Risks/Concerns:: No noted. Pt denies any suicidal ideations, plan, or intent, No hx of attempts. No passive thoughts of or desire to be . Progress Toward Goals/Plan:: Progress noted however pt is having difficult time identifying this. Reports that 75-80% of his day continues to be impacted by intrusive thoughts on health anxiety which is impacting his functioning. States there is no way I can functioning or work like this. Reassurance strategies are only effective short-term and may be hindering tolerance of uncertainty. Ruminations, feeling like a failure, MH symptoms impacting relationships, and distress still reported. Will continue in [facility] to prevent decompensation, decrease intrusive thoughts, increase strategies to improve mood. Time Stopped:: 13:10
--- NOTE | 2019-01-09 09:00 | BH.SGPN.GN ---
Behaviors/Verbalizations/Mental Status: [] Eye contact is good. Motor activity is appropriate. Appearance is casual. Speech is Appropriate. Mood is anxious. Affect is congruent. Thoughts are linear and logical. No evidence of psychosis. Reviewed daily check in sheet and no reports of suicidal ideations or intent Client Response/Progress/Benefit: [] Pt participated at times in group discussion. Attentive. Shared that emotion for today is uncertain. Group and pt talked about the impact of feeling uncertain and lack of control have on mental health. Pt notes that these two things are at the center of his health anxiety. Notes that he received a positive message from a friend which was uplifting. Completed some opposite action skills. Continues to struggle with intrusive thoughts and significant anxiety. Seeking reassurance from mother is primary coping skill which only has short-term benefits. Some progress noted. Benefited from support, encouragement, and feedback. Will continue in PHP to prevent decompensation, increase skills for intrusive thoughts, and improve daily functioning. Narrative Note: []
--- NOTE | 2019-01-09 10:08 | BH.SGPN.GN ---
Behaviors/Verbalizations/Mental Status: []Client alert and oriented, neatly dressed and groomed. Eye contact good. Motor activity appropriate. Speech within normal limits. Affect constricted, mood anxious, dysthymic. Thoughts linear, logical, no signs of hallucinations or delusions. Client Response/Progress/Benefit: []Client responded well to session, attentive and participating in discussion. Connected with the quote and shared ?we don?t have to let external things determine how we think.? Participated in discussion of things that can keep people feeling trapped or stuck in life including; isolation, lack of trust, substance use, focusing on negatives, lack of awareness, denial, and lack of self-worth. Group discussed the connection between thoughts, emotions, and behaviors as well as how negative thinking can keep a person stuck. Client attentive during psychoeducation on maintenance cycles. Client able to identify negative thoughts that have reinforced anxiety and kept client feeling trapped. Client shared his negative thought which was ?what if I can?t do this? what if I screwed up my family.? Client reported this thought has caused hopeless and self-blame. Appeared to benefit from gaining awareness of how negative thoughts reinforce mental health symptoms and keep people stuck. Progress noted in client?s report of increased self-awareness of unhealthy coping skills. Will continue tx to prevent decompensation and improve daily functioning.
--- NOTE | 2019-01-09 14:40 | BH.MDN ---
Multi-Disciplinary Note - Note 45-min Individual Time Started:: 12:20 Date: 01/09/19 Purpose of session/treatment goals addressed:: Reviewed symptoms and progress in PHP. Addressed treatment goals 1 and 2. Eye Contact:: Fair Motor Activity:: Restless Appearance:: Casual Speech:: Appropriate Mood:: Anxious, Irritable Affect:: Congruent Thoughts:: Linear, Logical, No evidence of hallucinations/delusions noted Client Response:: Pt reports that he had a very distressful day yesterday. Reports intrusive thoughts regarding numbess in his legs and pubic discomfort. Numbness resulted in instruvie thoughts, anxiety, and panic. Pt was unable to tolerate and reached out for reassurance and comfort from mother. This is his safety-seeking behavior and only provided short-term relief. Once he was able to talk with mother his anxiety decreased and his symptoms resolved. Pointed out this verifies symptoms were related to anxiety. Another episode occured later in the evening where he convinced himself he had cancer. Processed this event and pt able to identify irrational and non-sensical correlations which he was not able to indentify yesterday. Pt was challenged as he has not been completing reading assignments nor is he attempting to try coping skills aside from reassurance. Risks/Concerns:: no risks or concerns noted. Progress Toward Goals/Plan:: Some regression. Two panic episodes yesterday. Pt relies heavily on his mother and her reassurance when his health anxiety is highest. This is a hinderance to his development of internal coping skills and reinforces his thoughts and lack of uncertainty tolerance. Challenged pt on lack of follow through with reading and skills provided in IOP like mindfullness, grounding, radical acceptance, and CBT. Developed a list of skills to utilize prior to reassurance and safety seeking behaviors. Plan in to continue in [facility] to prevent decompensation, stablize anxiety, and improve daily functioning to return to work. Time Stopped:: 01:10
--- NOTE | 2019-01-10 09:00 | BH.SGPN.GN ---
Behaviors/Verbalizations/Mental Status: [] Eye contact is good. Motor activity is appropriate. Appearance is casual. Speech is Appropriate. Mood is anxious. Affect is congruent. Thoughts are linear and logical. No evidence of psychosis. Reviewed daily check in sheet and no reports of suicidal ideations or intent. Client Response/Progress/Benefit: [] Participated when prompted. Struggling with anxiety this AM however reports on the whole feeling more confident. Notes he had a good day yesterday. Used several words such as defeated, frustrated, and hopeless. Mornings continue to be toughest part of the day for pt as he often wakes with with physical discomfort which triggers intrusive thoughts. Not using skills consistently however is noticing some improvement. Admits that it is difficult to see improvement when he is feeling anxious. Group provided support, encouragement, and feedback. Will continue in PHP to prevent decompensation, improve functioning, and increase skills to manager sign intrusive thoughts. Narrative Note: []
--- NOTE | 2019-01-10 10:24 | BH.SGPN.GN ---
Behaviors/Verbalizations/Mental Status: [Client alert and oriented, casually dressed and neatly groomed. Eye contact good, at times intense. Motor activity appropriate. Speech within normal limits. Affect congruent, mood anxious, dysthymic. Thoughts significant for rumination, no signs of hallucinations or delusions. ] Client Response/Progress/Benefit: [Client responded well to session, actively engaged in discussion and activity and asking questions throughout. Client discussed the quote and shared ?we almost expect our supports to be able to handle our emotional weight without it impacting them as well?. Pt connected this with his use of external validation and impact this has on his supports. Client discussed the long-term impact of not being able to cope with emotions, expressing that this could ?jeopardize our credibility and dependability? or ?lead to self-blame. Client identified fear of rejection and being in an uncomfortable environment as barriers to communicating emotions in a stressful situation. Client worked with group to discuss the potential mental health and relationship benefits of being able to communicate during stressful situations. Client participated in the activity and did well to regulate his emotions while challenging self to remain patient and focused even in a high stress environment. Client appeared to benefit from increasing awareness of how emotions can impact communication and practicing in the moment coping skills. Progress noted as client reports increased insight and ability to manage symptoms of anxiety on more consistent basis. Client to continue IOP to reinforce healthy coping skills, reduce anxiety, ruminations, and reassurance seeking urges, as well as prevent decompensation. ] Narrative Note: []
--- NOTE | 2019-01-10 11:27 | BH.SGPN.GN ---
Behaviors/Verbalizations/Mental Status: []Client alert and oriented, neatly dressed and groomed. Eye contact fair. Motor activity appropriate. Speech within normal limits. Affect constricted, mood anxious,dysthymic. Thoughts linear, logical, no signs of hallucinations or delusions Client Response/Progress/Benefit: []Client attentive and taking notes throughout session. Attentive during psychoeducation on 4 zones of regulation. Client able to identify how he feels in each zone as well as how he acts in each zone. Client also able to identify coping skills he can use to support himself in each zone which included: opposite action, acceptance, sitting with uncomfortable feelings, and challenging self-blame. Client shared he is in the ?yellow zone? today as client feels increased anxiety, frustration, and discouragement. Client reported when he is in this zone, he wants to avoid situations, but he recognizes this does not help him long-term. Client reported he could benefit from practicing opposite action today and facing an anxious situation rather than rescheduling. Benefited from group from increased education on zones of regulation or stages of alertness for emotions and healthy coping skills to use for each zone. Client continues to improve his self-awareness, but he continues to struggle with managing anxiety and seeking reassurance. Recommended continued IOP tx to prevent decompensation, reduce intrusive thinking, and improve daily functioning.
--- NOTE | 2019-01-13 15:54 | BH.COMM ---
Communication Note - Communication with Client Communication Note: pt called this AM to cancel PHP. Reports that he has a medical appointment which he forgot about till this AM. Will return tomorrow.
--- NOTE | 2019-01-14 09:00 | BH.SGPN.GN ---
Behaviors/Verbalizations/Mental Status: [] Eye contact is good. Motor activity is appropriate. Appearance is neat. Speech is Appropriate. Mood is anxious. Affect is congruent. Thoughts are linear and logical. No evidence of psychosis. Reviewed daily check in sheet and no reports of suicidal ideations or intent. Client Response/Progress/Benefit: [] Pt participated at times during group discussion. Daily symptom tracker shows 4/5 for anxiety and 3/5 for panic, agitation, and hopelessness. Shared that he had a good weekend which was beneficial for his mental health and confidence. Ws able to manager english health anxiety and thoughts. States that this AM his anxiety has returned and it is frustrating as he had several good days. Feels like he is regressing and a failure due to anxiety returning again this AM. Group attempted to provided feedback, support, and encouragement. Progress noted over the weekend. Benefited from group support, encouragement, and feedback. Will continue in [facility] to prevent decompensation. Plan is to discharge from [facility] today and stepdown to IOP. Narrative Note: []
--- NOTE | 2019-01-14 10:10 | BH.SGPN.GN ---
Behaviors/Verbalizations/Mental Status: [] Eye contact is good. Motor activity is appropriate. Appearance is neat. Speech is Appropriate. Mood is anxious. Affect is congruent. Thoughts are linear and logical. No evidence of psychosis. Client Response/Progress/Benefit: [] Pt was an active participant in group discussion and activity. Contributed to discussion on quote of the day. Group worked together to come up with common negative forces in thief lives which can hold them back from growth. There included; toxic relationships, negative thoughts, cognitive distortions, fear of failure, anger, and unhealthy coping skills (alcohol, sleeping to escape, isolation). Group then worked together to identify common positive forces which help us grow. Theses included; Healthy coping skills, positive support, self-care, patience, realistic and positive thinking, and following treatment suggestions. Pt was attentive during psychoeducation on the importance of utilizing many aspects of positive forces to help one grow. Benefited from group with increased insight and awareness on the impact of negative and positive forces on mental wellness. Narrative Note: []
--- NOTE | 2019-01-14 11:10 | BH.SGPN.GN ---
Behaviors/Verbalizations/Mental Status: []Client alert and oriented, neatly dressed and groomed. Eye contact fair. Motor activity appropriate. Speech within normal limits. Affect flat and mood anxious and depressed. Thoughts linear, logical, no signs of hallucinations or delusions. Client Response/Progress/Benefit: []Client passive participant AEB client not contributing thoughts during discussion, however did appear to listen attentively to peers. Client completed worksheet identifying his positive and negative forces in life. Client identified positive forces that aid in progressing toward mental health goals include: coping skills, keon, support system, radical acceptance, and active role in staying physically healthy. Client indicated negative forces that prevent progress include: health anxiety, cycle of continuing to fight off negative/intrusive thoughts, fueling the cycle of seeking reassurance, and desire for control and fear of giving up control. Client seemed to benefit from increased awareness of personal positive and negative forces in life and impact they have on mental health and wellness. Client to continue PHP level of care to increase application of healthy skills, decrease anxiety and prevent decompensation. Narrative Note: []
--- NOTE | 2019-01-14 14:15 | BH.MDN ---
Multi-Disciplinary Note - Note 45-min Individual Time Started:: 12:15 Date: 01/14/19 Purpose of session/treatment goals addressed:: Review current symptoms and progress in PHP. Addressed treatment goals 1 and 2. Eye Contact:: Fair Motor Activity:: Appropriate Appearance:: Casual Speech:: Appropriate Mood:: Anxious, Depressed Affect:: Congruent Thoughts:: Linear, Logical, No evidence of hallucinations/delusions noted Staff Interventions:: Processed intrusive thoughts. Modeled coping strategies. Praised pt for his efforts. Gave pt assignment to write down all of his coping skills with goals to develop a step by step anxiety mgmt plan. Client Response:: Pt was tearful during the session. Reports that today is a bad day. Reports intrusive thoughts that with each day that passes I fell that the cancer gets worse. Has appt with specialist on 02/04/19 which is an appt he made months ago. He is unsure if this is helpful or not. Thinking about the appt is a trigger as it causes him to ruminate on his distress. Second guessing his appt with PCP last week as he is thinking about all the things that he forgot to tell the PCP. Worked in the session to model radical acceptance, thought challenging, and calming strategies. Pt reports being frustrated as he had 3 positive days up until this AM. Able to identify skills that he used during those days to accept thoughts. Disclosed that he feels a great deal of pressure to get better and feels responsible and blamed for family conflict due to his anxiety. Praised for his effort this weekend which resulted in sustained stability. Has decreased his reliance on his mother to reassure and increased his confidence in his own skills. Manages mood OK in between PHP days indicating that he may be ready for step down to IOP. Pt is in agreement that he needs to be proactive in the AM and wants to develop a concrete step by step plan to use when intrusive thoughts occur. Reports feeling less anxious and more confident after the session. Risks/Concerns:: Denies any suicidal ideations, plan, or intent. Despite distress pt notes that suicide would never be an option. Protective factors are kids and keon. Progress Toward Goals/Plan:: Progress noted as pt reported 3 sustained days w/o significant distress. Returned to work for one day last week and felt confident. While he is experiencing distress more days than not the freqeuncy, severity, and duration of anxiety and panic have decreased. Appears to be ready to step down to IOP. Will discuss with psychiatrist tomorrow. Time Stopped:: 13:00
--- NOTE | 2019-01-15 14:58 | BH.DS ---
Discharge Summary - Demographics Date of Admission:: 01/01/19 Discharge Date: 01/14/19 Presenting Problems at Admission:: Pt is a 38 year old male with hx of MDD, LINDSEY, and Hypochrondriasis. Recently discharged from [facility] on 12/30/18. Was admitted on 12/25/18 due to worsening severity of obsessive intrusive thoughts reagrding his health, specifically that he has cancer. Anxiety led to depression, crying spells, decreased sleep, decreased appetite, and impaired functioning. Has not been able to function at home or work due to obsessive thoughts. Convinced that he has colon cancer despite physicians and diagnostic tests indicating no concern. Poor energy, poor concentration, decreased motivation, decrease in ADLs, panic attacks, and poor appetite. Denies HI or psychosis. Denies substance abuse. Denies sucidal ideations, plan, or intent. No hx of attempts. Per [facility] pt disclosed fleeting thought to OD on medications. Pt denies this was suicidal ideation just fleeting passive thoughts. Due to recent hospitaliztion, actue exacerbation of symptoms, severe health anxiety, and MH symptoms interfering with familial, social, and work functioning recommended PHP to stablize. Discharge Diagnoses:: MDD, recurrent, severe w/o psychosis. Illness Anxiety Disorder. LINDSEY Reason for Discharge:: No longer meets criteria for [facility] level of care. - Treatment Progress During Treatment & Response: Progress noted since starting PHP. Increased insight, awareness, and skills.Mood has been erratic in the past few days with increase difficulty with intrusive thoughts and health anxiety. Feeling frustrated. Pt is not trying new skills on consistent basis often giving up if no immediate relief. Despite pt's current struggles he has reported improvement since starting PHP as he has been to work on several occasions, has reported 2-3 days with minimal symptoms, and reports that severity, frequency, and duration of distress is less. These are the reasons that he will be stepped down from [facility]. Issues Still to be Addressed:: instrusive thoughts, health anxiety, consistent use of skills, Discharge Recommendations/Instructions:: Current plan is to step down to [facility] level of care with plan to develop more concrete and proactive steps to address intrusive thoughts. Pt has appt with new psychiatrist this afternoon. Will continue in [facility] to prevent decompensatin, improve functioning, and help with transition back to work. Discharge Handout: Complete Discharge Handout with client on aftercare options and continuity of care.
== END 2019-01-14 14:00 | disposition home or self-care (01) ==
LOC: BHPHP 09:00
PROVIDERS: Family Provider Family Medicine; PCP Family Medicine; Referring Provider Psychiatry & Neurology Psychiatry; Visit Provider Psychiatry & Neurology Psychiatry
DX: F33.2 Major depressive disorder, recurrent severe without psychotic features (principal); F41.1 Generalized anxiety disorder; F45.21 Hypochondriasis; F10.21 Alcohol dependence, in remission; Z79.899 Other long term (current) drug therapy
CPT/HCPCS: H0035; 90834; 90837; G0410

== ENCOUNTER 2019-01-15 09:00 | Outpatient (RCR) | payer OTHER, SELFPAY ==
--- NOTE | 2019-01-15 09:00 | BH.SGPN.GN ---
Behaviors/Verbalizations/Mental Status: [] Eye contact is good. Motor activity is appropriate. Appearance is neat. Speech is Appropriate. Mood is anxious. Affect is congruent. Thoughts are linear and logical. No evidence of psychosis. Reviewed daily check in sheet and no reports of suicidal ideations or intent. Client Response/Progress/Benefit: [] Pt participated when prompted. Attentive. Journaling at times during the group which he notes helps him focus. Noted some mental health wins as he has begun to schedule and be more involved with work responsibilities. Overall consumed by his health anxiety this AM. Doesn't trust in his abilities to manage anxiety. What if thinking regarding his health anxiety. Limited progress. Continues to be challenged with health anxiety especially in the AM. Group provided feedback and pt was receptive. Benefits from group support and encouragement. Will continue in IOP to prevent decompensation, improve functioning, aid in transition back to work, and to increase strategies to manage health anxiety. Narrative Note: []
--- NOTE | 2019-01-15 10:16 | BH.SGPN.GN ---
Behaviors/Verbalizations/Mental Status: []Client alert and oriented, casually dressed and groomed. Eye contact good. Motor activity appropriate. Speech within normal limits. Affect constricted, mood depressed. Thoughts linear, logical, no signs of hallucinations or delusions. Client Response/Progress/Benefit: [][Pt passive participant as evidenced by pt not providing input during discussion, however appeared to listen attentively to others as shown by pt taking notes throughout. Pt did well to remain attentive as fellow participants discussed connections between activity and barriers/supports to development of a resilient lifestyle. Pt benefitted from brainstorming benefits of being resilient which included: stronger than before, improving ability to cope, builds confidence and self-esteem, and sense of accomplishment. Pt progress currently hindered by pt's continued intrusive thoughts and pt struggling to utilize healthy skills consistently. Recommend continued IOP tx to prevent decompensation, promote healthy change behaviors, as well as continue to work on application of acceptance skills.] Narrative Note: []
--- NOTE | 2019-01-15 11:17 | BH.SGPN.GN ---
Behaviors/Verbalizations/Mental Status: [Eye contact fair to good, often looking down and taking notes throughout discussion. Motor activity is appropriate. Appearance is casual and pt grooming neat. Speech an appropriate rate and tone. Mood is anxious and depressed. Affect is congruent with mood. Thoughts ruminative in nature and pt appearing to experience significant difficulties in maintaining focus. No evidence of psychosis. ] Client Response/Progress/Benefit: [Pt remained a mostly attentive participant, however struggled at times with engagement throughout session and providing input. This may have been a result of pt self-reports significant anxiety causing increased rumination this morning. He did well to challenge himself to provide input during group discussion, though at times continued to struggle with becoming distracted by own thoughts. When actively listening, pt able to make connections to materials discussed AEB nodding and taking notes. Benefitted from reviewing strategies for developing and promoting a resilient lifestyle and reflecting upon how this topic may relate to his own mental health progress. Pt Identified that focusing on improving his use of the resilience factor of ?avoid seeing crises as insurmountable? he may also be able to better keep distorted thoughts in perspective. Pt would benefit from continued focus in this area. Pt progress limited due to increased difficulties in challenging ruminations and remaining present in group which may have impacted ability to retain information discussed. Recommended continued IOP tx to manage intrusive thoughts and decrease anxiety, as well as continue to promote healthy change behaviors. ] Narrative Note: []
--- NOTE | 2019-01-15 11:58 | BH.DR.ITP ---
Initial Treatment Plan - Patient Information Visit Information: ADMISSION DATE: EXPECTED LOS: 4-6 weeks - Problems/Symptoms Problem #1:: Illness anxiety disorder Symptom:: ruminates and obsesses over having cancer or some illness Problem #2:: Depression Symptom:: frustrated and sad over his poor quality of life
--- NOTE | 2019-01-15 12:00 | PCM.BH.PN_ITS ---
Progress Note Progress Note: [] History of Present Illness/Interim History: [] Paddy is seen in follow-up to stepdown from [facility] to [facility] at [facility]. He is a 38-year-old male with a history of illness anxiety disorder (formally called hypochondriasis), major depression, and anxiety who was currently stepping down from [facility] to [facility] at [facility]. He states that his mood still remains down and he had some good times over the weekend. He states he is better at times but then the last day or 2 his anxiety is increased. His anxiety is solely related to the fact that he feels he has pubic discomfort which means that he has cancer or some other illness. He has seen his PCP for this new discomfort and he still is not reassured. He denies any suicidal thoughts but does admit that he is not sure how long he can go on like this. He has a lot of ruminating and thoughts perseverating on this anxiety over having an illness. He is having panic feelings often during the day also. His sleep is better overall. His home life is okay but again his is somewhat frustrated at him for having this illness anxiety. He does feel he is benefiting from the PHP program and will continue to benefit from the IOP program. He has been compliant with his medications and is using the Vistaril more often the last day or 2 than he was before. Current Psychiatric Medications: [Prozac 40 mg p.o. daily, he has been on this dose since December 29, 2018. Seroquel 200 mg p.o. nightly, Neurontin 600 mg p.o. 3 times a day, Vistaril 50 mg p.o. as needed] [] Mental Status Examination: [] He is casually dressed and groomed with good hygiene and appears normal for his stated age of 38. He has no psychomotor agitation or retardation. Speech is normal rate and rhythm fluent with no pressure. Eye contact is good. Mood is depressed and anxious. Affect is constricted and consistent with the above mood. Thought processes organized and goal-directed. Thought content: He obsesses and perseverates over his worry of having an illness causing his pubic discomfort which today he feels his cancer. He has no evidence of hallucinations or delusions. His reality testing is intact. Concentration a little decreased due to the rumination. Impulsivity low, judgment intact, insight: Some present. Diagnoses: [] [place] I: [Major depressive disorder recurrent severe without psychosis, illness anxiety disorder, generalized anxiety disorder, history of alcohol use disorder] [place] II: [] [place] III: [Negative] [place] IV: Memory support, marital, work issues Plan: [] The patient sees a new psychiatrist this afternoon. He will continue to do the IOP program we will step him down from the PHP as he feels and we feel that he has improved and is and able to step down to IOP. He will continue the IOP as he will still benefit from the support, education, structure and therapy to prevent worsening of his symptoms. The risks options and possible complications and side effects of his medication were discussed with the patient. He understands and accepts this. In addition I discussed that I would recommend increasing probably in his Prozac to 60 mg p.o. daily. However since he is seeing his new psychiatric provider today I will defer to that provider on if they want to make changes on his medications.
--- NOTE | 2019-01-15 14:41 | BH.MTP ---
Master Treatment Plan - Patient Information Program Physician:: Briseyda Basilio Primary Therapist:: Mauro Branch - Psychiatric Diagnoses Psychiatric Diagnoses:: MDD. Illness Anxiety Disorder Diagnosis Code(s):: F33.2; F45.21 - Estimated LOS Estimated LOS (in weeks):: 6 Problem/Goal #1 - Problem/Goal #1 Stated Goal:: Client will reduce frequency, duration, and severity of health anxiety thoughts and due to Illness Anxiety Disorder through the Intensive Outpatient Program as evidenced by reducation in DSM-5 cross cutting scales from admission. Description of Barriers: Stigma, relationship conflicts, lack of patience, needs constant reassurance Functional Impact: Intrusive thoughts and health anxiety have significantly impacting his social, familial, and work functioning. Led to hospitalization and inability to complete work responsibilities - Objectives Objective #1 Stated Objective: Client will develop a individualized proactive and concrete plan which includes warnings signs, daily strategies to guage anxiety level, beahvioral activation skills, and internal and external coping skills to address intrusive health-related thoughts. Interventions: Through individual and group counseling will be provided with education on anxiety management skills. Indiv therapist will work with patient to help develop this individualized plan. Discharge Criteria: Complete plan and consistently use it for 2 weeks. Target Date: 02/26/19 Review Date: 02/15/19 Objective #2 Stated Objective: Pt will create a list of several coping skills ranging from CBT, DBT, and and mindfulness and practice these internal and external coping skills on a consistent basis Interventions: Through individual and group counseling will provide education and guidance on DBT, CBT, and mindfullness skills. Will hold pt accountable for daily use of skills and following though with mental health goals. Discharge Criteria: Develop a list of internal and external coping skills and be able to use these skills on consistent basis. Will show a reduction on anxiety scales on DSM-5 Target Date: 02/26/19 Review Date: 02/15/19 Problem/Goal #2 - Problem/Goal #2 Stated Goal:: Client will decrease depression and irritability as well as increase communication and conflict resolution skills to improve relatinships through Intensive Outpatient Services. Will reduce scores on depression and relationship disatisfaction on DSM-5 SCALES. Description of Barriers: Stigma, decompensation has led to hopelessness, relationship conflicts, poor self-esteem Functional Impact: Anxiety lead to depression, hopelessness, and fear of failure which exacerbates anxiety and functioning. - Objectives Objective #1 Stated Objective: Client will identify 2-3 triggers and 2-3 new ways to navigate stressful situations rather than becoming irrational and frustrated. Interventions: Through groups will identify and utilize ways to identify and manage stressors. Therapist will use motivational interviewing, and help client make changes in life to encourage more responsible and rational behavior, ways to manage emotions in stressful situations, and feel more confident in himself. Discharge Criteria: Client will have met this goal when he is able to describe less than 2 irrational reactions in a week, and at least 2 new ways to handle these stressful situations Target Date: 02/26/19 Review Date: 02/15/19 Objective #2 Stated Objective: Client will learn and implement 2 conflict resolution skills to manage interpersonal problems. Interventions: Through groups and individual counseling will teach client appropriate conflict resolution skills and effective communication. Discharge Criteria: Client will have achieved this goal when can verbalize and has practiced at least conflict resolution skill and assertive communication skills with . Target Date: 02/26/19 Review Date: 02/15/19
--- NOTE | 2019-01-15 14:42 | BH.MDN ---
Multi-Disciplinary Note - Note 60-min Individual Time Started:: 12:20 Date: 01/15/19 Purpose of session/treatment goals addressed:: Reviewed current symptoms and progress in IOP. Created new treatment plan goals for IOP. Eye Contact:: Good Motor Activity:: Restless Appearance:: Casual Speech:: Appropriate Mood:: Anxious, Depressed Affect:: Congruent Thoughts:: Linear, Logical, No evidence of hallucinations/delusions noted Staff Interventions:: Utlized OR techniques to elicit change behaviors. Processed current thoghts with pt. Worked with pt to develop concrete and proactive plan for instrusive healthy anxiety thoughts for tomorrow. Client Response:: Pt reports today is a bad day. Reports extensive intrusive and ruminating thoughts regarding his discomfort, health anxiety, and progress. Impacting focus and functioning. Pt continues to report intrusive thoughts. In the last two days he has struggled specifically in the AM. Pt worked with therapist to develop a proactive and concrete plan of action for tomorrow AM which includes opposite action, mindfullness, grounding, goal-setting, affirmation, and helping others. Also worked with therapist on some radical acceptance statements. Pt admits that he has not tried certain skills nor read book on intrusive thoughts. When thoughts occur he tends to get consumed with them and if skills don't provide immediate relief he feels defeated. Talked about accepting uncertainty and lack of control. Risks/Concerns:: No risks or concerns noted. Progress Toward Goals/Plan:: Progress noted since starting PHP. Mood has been erratic in the past few days with increase difficulty with intrusive thoughts and health anxiety. Feeling frustrated. Pt is not trying new skills on consistent basis often giving up if no immediate relief. Despite pt's current struggles he has reported improvement since starting PHP as he has been to work on several occasions, has reported 2-3 days with minimal symptoms, and reports that severity, frequency, and duration of distress is less. These are the reasons that he was stepped down from PHP. Current plan is develop more concrete and proactive steps to address intrusive thoughts. Pt has appt with new psychiatrist this afternoon. Will continue in IOP to prevent decompensatin, improve functioning, and help with transition back to work. Time Stopped:: 01:15
--- NOTE | 2019-01-16 14:29 | BH.MDN ---
Multi-Disciplinary Note - Note 45-min Individual Time Started:: 10:00 Date: 01/16/19 Purpose of session/treatment goals addressed:: Reviewed current symptoms and progress in IOP. Addressed goals 1 and 2. Reviewed proactive plan. Eye Contact:: Good Motor Activity:: Appropriate Appearance:: Casual Speech:: Appropriate Mood:: Anxious Affect:: Congruent Thoughts:: Linear, Logical, No evidence of hallucinations/delusions noted Staff Interventions:: Processed panic events yesterday. Reviewed anxiety management plan. Client Response:: Pt reports that he had a significant panic episode yesterday evening. Notes that there was no specific trigger to his knowledge however when he arrived at his parent's house to drive with his mother to a psychiatrist appointment he began to experience overwhelming fear and panic. Could not figure out why. Began to ruminate and thoughts got worse. Began to yell and punched chair. Once he left the house and went to the garage symptoms lessened. Began to utilize internal coping skills and symptoms continued to improve. In talking about the events he is begining to gain awareness that the house could have triggered him. Insight that he managed his symptoms w/o reassurance from mother. Woke up today and utilized proactive plan developed yesterday which was beneficial as he is currently reporting minimal distress. Practiced acceptance twice today. Noticed that he often asks why when in panic and it was agreed that if he notices himself asking why this is a signal to practive acceptance and patience that he cannot ever answer the why question. Plan is to continue with proactive plan tomorrow morning. Risks/Concerns:: no risks or concerns noted. Progress Toward Goals/Plan:: Two significant panic episodes yesterday. Feels guilty however did gain some insight through processing of the events. Continues to use reassurance through mother as primary coping when overwhelmed which he today for the first time verbalized that this is not helping long-term. Conditioning himself to seek reassurance with any distress. Encouraging pt to use internal skills prior to reassurance. Progress as this AM's proactive plan was helpful to combat negative thoughts in the AM. This AM has set some MH goals, written in journal, identified acts of kindness he can do today, and had been using internal skills. He has been sporadically attending work and beleives that he is ready to go back tomorrow. He views this as helpful for distraction, normalcy, and purpose. Will continue in IOP to prevent decompensation, stablize anxiety, and provided support through transition back to work. Time Stopped:: 10:45
== END 2019-01-18 23:59 ==
LOC: BHIOP 09:00
PROVIDERS: Family Provider Family Medicine; PCP Family Medicine; Referring Provider Psychiatry & Neurology Psychiatry; Visit Provider Psychiatry & Neurology Psychiatry
DX: F33.2 Major depressive disorder, recurrent severe without psychotic features (principal); F41.1 Generalized anxiety disorder; F10.21 Alcohol dependence, in remission; Z79.899 Other long term (current) drug therapy
CPT/HCPCS: H0035; 90837; 90853

== ENCOUNTER 2019-01-22 09:00 | Outpatient (RCR) | payer OTHER, SELFPAY ==
--- NOTE | 2019-01-22 09:00 | BH.SGPN.GN ---
Behaviors/Verbalizations/Mental Status: [] Eye contact is good. Motor activity is appropriate. Appearance is neat. Speech is Appropriate. Mood is anxious. Affect is flat. Thoughts are linear and logical. No evidence of psychosis. Reviewed daily check in sheet and no reports of suicidal ideations or intent. Client Response/Progress/Benefit: [] Participated at times in group discussion on topic of what is normal? and expectations about our mental health. Emotion for today is anxious. Able to identify some mental health wins over the weekend which he elaborated on. Increasing his role at work and home. Mentioned some skills that he is utilizing. Engaged in discussion on group topic today. Often reports wants to be normal again. Progress noted. Will continue in IOP to improve daily functioning, prevent decompensation, and increase consistent use of healthy coping skills. Narrative Note: []
--- NOTE | 2019-01-22 10:21 | BH.SGPN.GN ---
Behaviors/Verbalizations/Mental Status: [Client alert and oriented, neatly dressed and appropriately groomed. Eye contact good. Motor activity appropriate. Speech within normal limits. Affect congruent, mood anxious and dysthymic. Thoughts linear, logical, no signs of hallucinations or delusions. ] Client Response/Progress/Benefit: [Client receptive of session, actively listening and at times contributing to discussion, though taking on a mostly passive role. Client indicated connecting with the topic of cognitive distortions, indicating that this is an area he particularly struggles with. Client nodding in connection as others shared examples of personal experiences with distorted thought patterns. Client did well to take notes and actively listen as group worked on defining the various types of cognitive distortions and ways they have impacted mental health in the past. Client reported connecting with distortion of emotional reasoning. Appeared to benefit from increasing awareness of cognitive distortions and how they can impact emotions and behaviors. Client continues to struggle in actively applying materials discussed and skills learned outside of tx environment which may impact progress and ability to manage anxious thoughts. Client to continue IOP tx to continue to promote application of calming and anxiety management skills, improve distress tolerance and emotion regulation, decrease reassurance seeking behaviors, and prevent decompensation.] Narrative Note: []
--- NOTE | 2019-01-22 14:03 | BH.MDN ---
Multi-Disciplinary Note - Note 30-min Individual Time Started:: 12:00 Date: 01/22/19 Purpose of session/treatment goals addressed:: Reviewed current symptoms and progress in IOP. Addressed treatment goals 1 and 2. Eye Contact:: Fair Motor Activity:: Restless Appearance:: Neat Speech:: Appropriate Mood:: Anxious Affect:: Congruent Thoughts:: Linear, Logical, No evidence of hallucinations/delusions noted Staff Interventions:: Challenged pt on lack of follow-thorugh. Reinforces the need for consistent use of skills event if he feels better. Client Response:: Pt reports being in distress this AM mainly due to health anxiety. He wanted to go immediately into his current distress however shifted conversation to prior week and the weekend. Sunday, Sunday, Sunday, and Sunday were all manageable. Notes bouts of happiness through most of the weekend. Yesterday morning and this morning have been distressful seemingly b.c he has had to talk about his thoughts and anxiety in therapy. Last session he had reported that morning proactive routine was helpful in taking more control over his anxiety in the AM. Seems that he did this on Sunday, Sunday, and Sunday however did not complete this task Sunday, Sunday, or today. Challenged him and he reports that he felt like things were better this weekend and he stopped. Confronted him on lack of follow through on skills and catastrophizing with any distress and then giving up on skills that have worked. He agreed and will consistently use morning routine and plan. Risks/Concerns:: No risks or concerns Progress Toward Goals/Plan:: Progress is erratic. Pt continues to not use skills and strategies consistently. Has 2-3 days of manageable anxiety and then ceases with strategies and skills. Once health anxiety returns he gets overwhelmed and beleives nothing will work. This has been pattern over the past 4 weeks. Confronted pt on this and encouraged accountability for lack of follow-through. Pt had 3 days of manageable behaviors with bouts of happieness however yesterday and this morning were distressful and he beleives he is at ground zero. When in his thoughts he is unable to utilize skills or understand that progress is not linear which is challenging. Will continue in IOP however w/o consistent use of skills there is limited progress expected. Time Stopped:: 12:30
--- NOTE | 2019-01-24 09:00 | BH.SGPN.GN ---
Behaviors/Verbalizations/Mental Status: [] Eye contact is good. Motor activity is appropriate. Appearance is casual. Speech is Appropriate. Mood is anxious. Affect is congruent. Thoughts are linear and logical. No evidence of psychosis. Reviewed daily check in sheet and no reports of suicidal ideations or intent. Client Response/Progress/Benefit: [] Pt participated at times during group discussion. Daily symptoms tracker indicates 3/5 for anxiety and 2/5 for panic, agitation, and hopelessness. Shared some mental health wins noting that he has been more productive. Has been utilizing some opposite action skills which led to a bike ride with his brother. Notes utilizing more skills than relying on reassurance. Primary stressor currently is some behavioral issues with one of his daughters. This has caused conflict with his . Progress noted as decrease in intrusive and health related anxiety. Benefited from group discussion, support, and encouragement. Will continue in IOP to prevent decompensation, improve daily functioning, and increase healthy coping skills. Narrative Note: []
--- NOTE | 2019-01-24 10:16 | BH.SGPN.GN ---
Behaviors/Verbalizations/Mental Status: [Client alert and oriented, casually and neatly dressed and appropriate grooming. Eye contact good. Motor activity appropriate. Speech within normal limits. Affect constricted, mood dysthymic and anxious. Thoughts appearing racing, ruminative in nature, no signs of hallucinations or delusions] Client Response/Progress/Benefit: [Pt participated in group, passive during discussion, however taking notes throughout and willing to complete worksheet activity. Pt connected with the group topic of Crisis and remain attentive at fellow participants worked together to define crisis and discussed examples of crisis situations. Connected with discussion on how small setbacks or annoyances can develop into a crisis if coping skills are unhealthy. Nodding in agreement with fellow participant who shared how intrusive thoughts can quickly lead to crisis. Group identified warning signs for crisis which included; increased sleep, irritability, decreased appetite, and suicidal thoughts. Pt completed the personal warning signs worksheet and identified crisis warning signs to include; increased irritability, reassurance seeking, and over thinking. Benefited from group by increasing awareness of crisis and personal warning signs. Progress limited due to pt limited engagement in group discussion and lack of application of skills learned outside of tx environment. Will continue IOP to promote change behaviors, increase thought challenging and anxiety management skills, and prevent decompensation.?] Narrative Note: []
--- NOTE | 2019-01-24 13:18 | BH.MDN ---
Multi-Disciplinary Note - Note 30-min Individual Time Started:: 11:05 Date: 01/24/19 Purpose of session/treatment goals addressed:: Reviewed current symptoms and progress in IOP. Addressed all treatment plan goals. Eye Contact:: Good Motor Activity:: Appropriate Appearance:: Casual Speech:: Appropriate Mood:: Anxious Affect:: Congruent Thoughts:: Linear, Logical, No evidence of hallucinations/delusions noted Staff Interventions:: Challenged pt on utilizing skills. Utilized NE techinques to elicit motivation. Client Response:: Pt immediately began to discuss his biggest struggles and concerns with himself and his anxiety. This has been a pattern in the past as it seems as soon as he sits downs he begins to vent all the negatives and catastrophize. He began to ruminate on his setbacks talking about driving to his parents house and having another meltdown. Feels compelled to seek reassurance and have someone argue with him about his thoughts on cancer. Challenged pt on seeking reassurance especially driving to his parents house as this strategy has been counter-productive in the past (refer to previous notes). Challenged pt on his lack of follow-though with attempting or applying skills learned in IOP. Responded well to challange pointing out that he only sought reassurance on one occasion and he mentioned the other skills that he has been trying. When talking showed insight that other skills when compared to reassurance were more beneficial and effective. He noted several good days especially on the days he is proactive in the AM and when he completes opposite action. Risks/Concerns:: No noted Progress Toward Goals/Plan:: Progress noted. Starting to decrease frequency of reassurance seeking. Increasing use of other coping strategies which has led to decreased severity of health anxiety. Returned to work for full 8 hour day. Transition has had moments of struggle. Recently his daughter has displayed some anxiety, isolation, and issues at school with anxiety which has caused concern for patient. Begining to utilize new skills and decrease unhealthy skills with improvement. Changing his prospective on his anxiety and appears less focused on the possibility of having cancer. Most engaged in group today than ever before. Will continue in IOP to maintain gains, prevent decompensation, and decrease intrusive thoughts. Plan also to have in for a family session. Time Stopped:: 11:40
--- NOTE | 2019-01-30 09:00 | BH.SGPN.GN ---
Behaviors/Verbalizations/Mental Status: [] Eye contact is good. Motor activity is appropriate. Appearance is casual. Speech is Appropriate. Mood is anxious. Affect is congruent. Thoughts are linear and logical. No evidence of psychosis. Reviewed daily check in sheet and no reports of suicidal ideations or intent. Client Response/Progress/Benefit: [] Pt participated at times during group discussion. Daily symptom tracker indicates 3/5 for anxiety and 2/5 for panic, agitation, and hopelessness. Shared with the group some mental health wins. He had a work event that he did not want to attend and was looking for ways out. In the end he utilized opposite action to combat his anxiety. Ultimately the event went well and he at times actually enjoyed it. On Sunday he reports that he had a normal day at work. Attended all meeting, contributed ideas, and actually felt competant. Progress noted. Utilized skills aside from reassurance. Will continue in IOP to prevent decompensation, increase health coping skills, decrease intrusive thoughts and healthy anxiety. Narrative Note: []
--- NOTE | 2019-01-30 10:05 | BH.SGPN.GN ---
Behaviors/Verbalizations/Mental Status: []Client alert and oriented, casual in appearance. Eye contact good. Motor activity appropriate. Speech within normal limits. Affect flat, mood dysthymic. Thoughts linear, logical, no signs of hallucinations or delusions. Client Response/Progress/Benefit: []Client attentive and engaged throughout session. Worked together with the group to define and identify differences between internal and external conflict. Client stated I view conflict as vital because without it there is no growth. Client elaborated conflict can be positive because can learn how to improve. Group identified and discussed consequences of ignoring conflict which included: increased depression, unresolved anger, increased anxiety, complacency, resentment, and conflict worsening. Client worked with group to identify barriers to addressing conflict which included: worrying about other person, pride, fear, being hard to face conflict, and negative thinking. Client stated he will avoid conflict because it provides temporary relief. Attentive during psychoeducation on different conflict styles such as avoiding, accommodating, competing, and collaborative. The group began to review benefits and drawbacks to each style and client provided insight to discussion. Benefited as she was able to identify and define conflict as well as increase awareness of how conflict style impacts mental health. Will continue IOP tx to prevent decompensation of anxious symptoms and increase consistent healthy coping skills. Narrative Note: []
--- NOTE | 2019-01-30 13:31 | BH.MDN_ITS ---
Multi-Disciplinary Note - Note 45-min Individual Time Started:: 11:00 Date: 01/30/19 Purpose of session/treatment goals addressed:: Reviewed current symptoms and progress in IOP. Adressed treatment goals 1 and 2. Eye Contact:: Good Motor Activity:: Appropriate Appearance:: Neat Speech:: Appropriate Mood:: Anxious Affect:: Congruent Thoughts:: Linear, Logical, No evidence of hallucinations/delusions noted Staff Interventions:: Utilized [place] techniques to elicit change behaviors. Reviewed skills and challenged irrtational thoughts. Modeled acceptance skills. Client Response:: Pt discussed several positive days since our last session. Mentioned working a full work day with no lunch and making it through while contributing to discussions in meetings. Reports that he felt like he managed things well and felt productive. Discussed another situation where he completed oppositve action which was beneficial. Insight that his anticipation of the event and things that can go wrong is often way worse than the actual event itse lf. Has some concerns about his dauther's anxiety which we discussed. Risks/Concerns:: no risks or concerns noted. Progress Toward Goals/Plan:: Limited ruminations and intrusive thoughts regarding health anxiety and more focus on typical anxiety involving work, children, and marriage. More accepting that somatic symptoms are minor or even psycho-somatic. Overall pt reports progress. Utilizing skills on a somewhat consistent basisi. Limiting use of reassurance. Fucntioning at work. Gradual decrease in severity, frequency, and intensity of instrusive thoughts. Getting to the point where half of his days are good. Anxiety, ruminations, and instrusive thoughts do still occur and do impact some asepcts of functioning. Discussed discharging with pt. He is apprehensive at this point. Will plan to discharge in 2 weeks if progress continues. Will continue in IOP to prevent decompensation, maintain gains, and improve daily functioning. Time Stopped:: 11:50
--- NOTE | 2019-01-31 09:30 | BH.COMM ---
Communication Note - Communication with Client Communication Note: Pt called in reporting a crisis with his daugther this AM. He is going to try to make it into IOP.
--- NOTE | 2019-01-31 11:51 | BH.MDN ---
Multi-Disciplinary Note - Note 45-min Individual Time Started:: 11:00 Date: 01/31/19 Purpose of session/treatment goals addressed:: Pt presented today later to [facility]. Came right to this therapist office noting some signicant issues this AM involving his daughter, his , and him. Agreed to have individual session. Pt arrived 2 hours late to [facility] therefore did not attend groups today. Eye Contact:: Poor Motor Activity:: Restless Appearance:: Casual Speech:: Appropriate Mood:: Anxious, Irritable, Depressed Affect:: Congruent Thoughts:: Linear, Logical, No evidence of hallucinations/delusions noted Staff Interventions:: Allowed pt to vent. Processed crisis this AM. Modeled and reminded pt of skills. Worked with pt to develop a plan to manage crisis this AM and engage with . Client Response:: Pt reports that his daughter (9) had an outburst last evening and again this AM. She has been defiant and reports not wanting to go to school. This has been increasing in the past few weeks. Last evening and this AM was very distressful for pt and his . After the event this AM pt reports that was angry and was blaming him for thier daughter's MH issues. Pt reports that mentioned not wanting to be together anymore. Pt notes that deniz freeman has not been good in 14 years as that conflict is nothing acute however this AM with daughter emotions and frustrations are esculated. These stressors have exacerabted his health anxiety which had been stable for the past week. Pt vented and problem solved with therapist. He denies any suicidal or homicial ideations, plan, or intent. Protective factors are taoist and family. He reports being frustrated and angry not suicidal. After processing and coming with with plan he reports less anxiety and anger. He has already made an appt with a child therapist for his daughter. Risks/Concerns:: Denies any suicidal ideations, plan, or intent. Protective factors. Contracts for safety. Future-oriented. Progress Toward Goals/Plan:: No progress noted. When presented with crisis pt reverted to previous thinking patterns and seeking reassurance from his mother. Catastrophizing and ruminating on healthy anxiety. Did not attempt to utilize skills which have been effective in the past week. When therapist reminds him of skills, challenges his irrational thoughts, and develops plan pt is able to calm and smptoms decrease. Some positives are that pt did recognize that his physical pain was either psychosomatic or mild strain by himself without aid from therapist. Will continue in IOP to prevent decompensation, show consistent use of skills, and improve functioning. Time Stopped:: 11:45
--- NOTE | 2019-01-31 14:00 | BH.TPR ---
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 Illness anxiety disorder. 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 Illness anxiety disorder. Generalized anxiety disorder Patient's Response to Treatment:: Limited progress noted. Consistent attendence however limited participation in groups. Has declined recommendation to include in couneling. When presented with crisis today pt reverted to previous thinking patterns and seeking reassurance from his mother. Catastrophizing and ruminating on health anxiety. Did not attempt to utilize skills which have been effective in the past week. When therapist reminds him of skills, challenges his irrational thoughts, and develops plan pt is able to calm and symptoms decrease. Some positives are that pt did recognize that his physical pain was either psychosomatic or mild strain by himself without aid from therapist. Status of Current Problems and Symptoms: Limited progress on treatment plan goals. Problem #1 Problem Name:: Anxiety Status of Goals:: Limited progress on consistent use of skills, however increase insight and awareness through IOP Team Recommendations:: Continue to challege patient on the importance of utilizing healthy coping skills and mindfullness. Problem #2 Problem Name:: Depression Status of Goals:: Limited progress. Depression is tied with healthy anxiety and relationhip conflicts. Team Recommendations:: Continue to work on healthy anxiety, effective communication skills, and anger mgmt which may help improve his relationship with family and decrease stress, anxiety, and depression.
--- NOTE | 2019-02-05 10:31 | BH.COMM ---
Communication Note - Communication with Client Communication Note: Pt left message this AM. Was not at IOP yesterday due to medical appointment with specialist. Is not going to be in today due to another medical appointment. Anxious over the phone. Reports met with specialist and a scan was ordered due to his reported. pain. Ruminating extensively on the results of the scan which he should hear the results today.
--- NOTE | 2019-02-06 09:05 | BH.SGPN.GN ---
Behaviors/Verbalizations/Mental Status: []Client alert and oriented, neatly dressed and groomed. Eye contact good. Motor activity tense. Speech within normal limits. Affect flat, mood anxious, agitated. Thoughts linear, logical, no signs of hallucinations or delusions. Reviewed client?s symptom tracker, no risk for suicidal ideation, plan, or intent as of 02/06/19. Client Response/Progress/Benefit: []Client responded well to session, attentive and engaged. Client reports feeling ?somewhat anxious? today. Client identified mental health wins today which included making dinner for his family last night, having a positive evening with his kids, and getting out of bed early this morning. Client shared he has been trying to get back into a routine which not only helps client, but it helps client?s relationship with his . Client?s current stressor is ?medical anxiety is always in the back of my mind.? Client reported he is trying to work on radically accepting his anxiety and physical health, but it continues to be an ongoing struggle. Client receptive to feedback from group and coping skills. Appeared to benefit from processing his stressors and challenging his perspective. Will continue IOP to prevent decompensation of anxiety symptoms and reduce perfectionistic thinking.
--- NOTE | 2019-02-06 10:10 | BH.SGPN.GN ---
Behaviors/Verbalizations/Mental Status: [] Eye contact is good. Motor activity is appropriate. Appearance is neat. Speech is Appropriate. Mood is depressed/anxious. Affect is congruent. Thoughts are linear and logical. No evidence of psychosis. Client Response/Progress/Benefit: [] Participated at times during discussions providing some insight. Attentive during psychoeducation on differences between fixed and growth mindset. Worked with group to identify how a fixed mindset can impact our mental health which included; not trying new coping skills, believing we can't get better, keeping us stuck, reinforcing fear of failure, decreasing motivation, and avoiding challenges. Group identified the impact that a growth mindset can have on mental health which includes; More likely to embrace challenges, encourages us to try new skills, learn from setbacks rather than ruminate on them, encourages us to believe in ourselves. Pt was able to identify some examples of fixed mindset that she often has. Benefited from group by increasing awareness of how one's mindset impacts our mental health. Narrative Note: []
--- NOTE | 2019-02-06 12:17 | BH.MDN ---
Multi-Disciplinary Note - Note 60-min Individual Time Started:: 11:00 Date: 02/06/19 Purpose of session/treatment goals addressed:: Review current symptoms and progress in IOP. Addressed treatment plan goals 1 and 2. Eye Contact:: Good Motor Activity:: Appropriate Appearance:: Casual Speech:: Appropriate Mood:: Anxious, Depressed Affect:: Congruent Thoughts:: Linear, Logical, No evidence of hallucinations/delusions noted Staff Interventions:: Utilized RI techniques to elict change behaviors. Challenged irrational thoughts and beliefs. Modeled and encouraged use of proactive and healthy coping skills which were effective in the past. Client Response:: Pt shared that the past two days have been overwhelming. Instrusive thoughts, health anxiety, increased irritability. Was honest that he did not utilize any skills learned and reverted to negative thinking and unhealthy coping through reassurance.Met with specialist regarding pain and CT scan was ordered. Scan was negative. States I should and I need to worry about the pain and health anxiety. Irrational thought that worrying is some type of action and that the unexplained must be serious. Challenged these mistaken beliefs. Could not identify any concrete evidence, progress, or conclusion that he has come up with as the result of worrying contradicting his belief that he needs to worry about the pain. Asked to share the consequences of worry which were extensive. Responded well to challenges from therapist. Talked at length about how his keon is tied up in his worry and believes that God gave him this pain (possible cancer) so that he continues to seek answers and if he stops, accepts this is psychosomatic, or employs patience then he is going agaisnt God. Processed this belief as well and patient able to identify how he could be taking this belief too far and how taking this belief too far is impacting his relationships which is something that God would not wish upon him. Re-framed that perhaps God sent him the pain so that he could work on patience, acceptance, and giving up control. When guided he did well to process thoughts, however he admits that he is not utilizing skills when he notices warning signs. Relationship with is still conflicted. Risks/Concerns:: none reported Progress Toward Goals/Plan:: Limited progress since last session. Appointment with specialist, waiting for CT scan, and healthy anxiety were exacerbated. Some relief with negative scan. Not utilizing effective skills consistently. Resorting back to unhealth skills and compulsion to worry and catastrophize. Reviewed all progress, challenged irrational thoughts, and developed plan to continue. Will continue in IOP to prevent decompensation, encourage/model proactive coping skills, improve daily functioning. Time Stopped:: 11:55
--- NOTE | 2019-02-07 09:04 | BH.SGPN.GN ---
Behaviors/Verbalizations/Mental Status: []Client alert and oriented, neatly dressed and appropriately groomed. Eye contact fair. Motor activity restless. Speech within normal limits. Affect constricted, mood anxious and depressed. Thoughts linear, logical, no signs of hallucinations or delusions. Reviewed client?s symptom tracker, no signs of suicidal ideation, plan, or intent as of today. Client Response/Progress/Benefit: []Pt was an engaged participant in group discussion, providing input and openly processing with the group. Emotion for today is anxious and concerned. Pt stated he is currently struggling because experiencing medical anxiety and found out his opened up to her parents about their relationship being law for several years. Pt reported he is anxious because he needs to face the consequences of being a jerk to my . Pt stated he will be seeing his in-laws this weekend for his daughter's birthday democrat so has a lot of worries about how the interaction. Pt stated he plans to have a conversation with his in-laws, but wants to make sure it is the right time where everyone can be involved in the talk. Pt stated he is struggling with identifying positives since he is struggling. Pt stated one positive is improving his reaction to situations, which pt identifies has been helping his relationship the past two days. Pt's intrusive thoughts continue to impact pt's ability to progress. Progress noted with pt applying skills to manage how he is reacting to situations at home. Continued IOP tx recommended to continue to utilize acceptance skills to manage anxious thoughts, prevent decompensation, and continue to improve healthy coping skills. Narrative Note: []
--- NOTE | 2019-02-07 10:13 | BH.SGPN.GN ---
Behaviors/Verbalizations/Mental Status: [Client alert and oriented, neatly dressed, appropriate grooming. Eye contact good. Motor activity WNL. Speech appropriate rate and tone. Affect congruent, mood anxious, depressed. Thoughts linear, logical, no signs of hallucinations or delusions. ] Client Response/Progress/Benefit: [Pt receptive of session, actively listening and providing some input throughout. Connected with the topic of ?turning over a new leaf? and making positive changes. Pt attentive and taking notes during group discussion regarding mental health benefits of change, shared connecting with the need for change in order to see positive progress. Identified three small personal changes to improve mental health as: exercising 3x week, waking up earlier during the workweek in order to incorporate a sense of structure and routine to his morning, as well as put more effort into actively listening and talking with his . Pt appeared to benefit from gaining awareness of personal changes that would improve mental health and the barriers keeping client stuck. Barriers identified as: struggling to give up control, lack of motivation, and fear of ?not being able to manage everything?. Progress noted in pt ability to provide awareness of current barriers and benefits of working to overcome these. Continue IOP to continue to promote application of healthy coping skills, increase communication with supports, and prevent decompensation.] Narrative Note: []
--- NOTE | 2019-02-07 12:10 | BH.MDN_ITS ---
Multi-Disciplinary Note - Note 60-min Individual Time Started:: 11:00 Date: 02/07/19 Purpose of session/treatment goals addressed:: Reviewed current symptoms and progress in IOP. Adressed goals 1 and 2. Pt reports being in crisis due to somatic pain. Eye Contact:: Poor Motor Activity:: Appropriate Appearance:: Casual Speech:: Appropriate Mood:: Anxious, Depressed Affect:: Congruent Thoughts:: Linear, Logical, No evidence of hallucinations/delusions noted Staff Interventions:: Reinterated skills. Challenged mistaken belifes, cognitive distortions, and irrational thoughts. Provided pt with list of skills and motivations to refocus thoughts. Client Response:: Pt initally very focused on his somatic pain. He reports that the pain is worse last night and today. Notes that it is a 4. Sought reassurance with his mother however she is distancing herself which caused him to get tearful stating I'm alone. He has several follow up questions regarding the scan and is debating whether to make appt with urologist as specia list had suggested. Convinced his body is telling him something is wrong. Not utilizing any skills and is again consumed with anxiety. Therapist reviewed skills and recommended that he follow physician's requests. Therapist clarified that the irrational behaviors have nothing to do with making appointments or taking action on somatic compliants it is how he zeke with the discomfort daily which is irrational. Patient able to identify the top priorities currently which are his and kids. He reports improved communication with which he has been working on. Increased stress about this weekend with family gatherings. Towards the end of the session pt is more hopeful. Denies any suicidal ideations, plan, or intent. Protective factors. Focused on saving his marriage. Risks/Concerns:: No risks or concerns noted. Progress Toward Goals/Plan:: No progress noted. Pt fails to utilize skills to manage anxiety and instead chooses to focus on body scanning, constant analyzing of symptoms, and thinking about what the phycians are missing. All intervention of group and individual have seen little progress. Progress was noted when he was consistently utilizing proactive skills however either chooses not to or convinces himself the skills are not effective. Will continue in IOP to provide support through current stressors, encouragment consistent use of skills, and challenge irrational thoughts. Will re-evaluate IOP level of care next week. Limited benefit if pt is not utilizing skills. Time Stopped:: 12:00
--- NOTE | 2019-02-10 09:10 | BH.SGPN.GN ---
Behaviors/Verbalizations/Mental Status: [] Eye contact is good. Motor activity is appropriate. Appearance is neat. Speech is Appropriate. Mood is depressed. Affect is flat. Thoughts are linear and logical. No evidence of psychosis. Reviewed daily check in sheet and no reports of suicidal ideations or intent. Client Response/Progress/Benefit: [] Pt was an active participant in group discussion. Shared that he is not doing well this AM. Discussed verbal argument with last evening and believes that his marriage is in serious trouble. Talked at length about stressors, perception of situation, uncertainty, and lack of control. Group was support and provided feedback and empathy. Others in the group related to his difficulty with need for constant reassurance and answers which can cause conflict. Insight that space would be beneficial with . Despite stressor pt reports that he had 3 days in which he was able communicating effecting, not letting his healthy anxiety consume him, and reported some positive encouragement from on effort. Overall the weekend was positive, however pt's absolute thinking causes him to see any setback as a failure. Benefited from group feedback. Will continue in IOP to prevent decompensation, improve daily functioning, and display consistent use of skills. Narrative Note: []
--- NOTE | 2019-02-10 10:16 | BH.SGPN.GN ---
Behaviors/Verbalizations/Mental Status: []Client alert and oriented, neatly dressed and groomed. Eye contact good. Motor activity tense. Speech within normal limits. Affect flat, mood anxious, depressed. Thoughts linear, logical, no signs of hallucinations or delusions Client Response/Progress/Benefit: []Client was an active participant in group activity and provided positive input during discussion. Client stated, ?I tend to measure progress by the most recent event.? Client reported because he had a bad day yesterday ?it feels like I?ve made no progress at all.? Client receptive to feedback from pen tender on how this thinking impacts client?s mental health and relationship with his . Group worked together to define goals and identify the benefits of developing goals which included; moving forward in life, increasing self-esteem, gives purpose in life, sense of accomplishment, and increasing determination. Group also identified barriers to setting and accomplishing goals which include; fear of failure, wanting instant results, unrealistic expectations, distorted thoughts, lack of motivation, and apathy. Attentive during education on developing SMART goals. Benefited from increase awareness of goal-setting methods. Client?s progress continues to be connected to external circumstances which makes it difficult for client to see prolonged mood stability. Will continue IOP to continuing working on managing anxious thoughts.
--- NOTE | 2019-02-10 12:48 | BH.MDN ---
Multi-Disciplinary Note - Note 60-min Individual Time Started:: 11:05 Date: 02/10/19 Purpose of session/treatment goals addressed:: Reviewed current symptoms and progress in IOP. Pt again requesting indv session due to significant distress related to relationship and health anxiety Eye Contact:: Good Motor Activity:: Restless Appearance:: Neat Speech:: Appropriate Mood:: Anxious, Irritable, Depressed Affect:: Congruent Thoughts:: Linear, Logical, No evidence of hallucinations/delusions noted Staff Interventions:: Challenged mistaken beliefs and cognitive distortions. Praised skill use. Processed recent struggles. Client Response:: Pt started the session focusing on the negatives specifically on verbal arguement with yesterday. Redirected to look at the whole weekend. Pt made significant progress in managing his emotions and healthy anxiety. Also improved communication with and reported that she acknowledged his progress on a couple occasions. Health anxiety and somatic pain did occur however he did not let it consume him or impact his relationships. Reports 3 days of stability however on Sunday night verbal arguement with over concerns with in-laws. Constanly seeking reassurance and guidance from which increased frustration on her part. Battling urges to gain control of situation and seek reassurance from her when space is what is most beneficial. Fearful that marriage is on its last thread. States I need to prepare myself if that is the case. Limited discussion on health anxiety and somatic pain today. Risks/Concerns:: No risks or concerns noted. Progress Toward Goals/Plan:: Progress noted over the weekend. Followed through with strategies discussed on Sunday. Able to manage and accept health anxiety and somatic pain and focus on his family and marriage. One setback on Sunday which in patient's mind means he failed. Processed the setback and identified that he ignored warning signs to anger and anxiety and reverted back to beleif that worrying or ruminating is the only action to solve a problem. Three positive days with increased communication, consistent skill use, and functioning which is progress. Poor communication and relationship conflict is long-standing. Pt declines offer to bring in for session. Hx of marital counseling with limited benefits. Will continue in IOP to prevent decompensation, display consistent skills use, and improve functioning. Time Stopped:: 12:00
--- NOTE | 2019-02-13 09:07 | BH.SGPN.GN ---
Behaviors/Verbalizations/Mental Status: [Eye contact is fair to good. Motor activity is appropriate, restless. Appearance is neat, casual. Speech is Appropriate rate and tone. Mood is anxious, dysthymic. Affect is congruent. Thoughts are linear and logical. No evidence of psychosis. Reviewed daily check in sheet and pt denies any active SI, plan, or intent. ] Client Response/Progress/Benefit: [Pt responded well to session, listened throughout. Pt indicated he did not want to share in group today however remained attentive as others did and provided supportive feedback. Appeared to connect with support and encouragement provided by fellow participants. Pt appearing to benefit from support and structure of group environment and being able to relate to fellow participants experiences. Ongoing difficulties with rumination continue to impact tx progress at times. Recommended continued tx to prevent decompensation, maintain stability, and promote ongoing application of healthy coping skills.] Narrative Note: []
--- NOTE | 2019-02-13 10:14 | BH.SGPN.GN ---
Behaviors/Verbalizations/Mental Status: []Client alert and oriented, neatly dressed and groomed. Eye contact good. Motor activity appropriate. Speech within normal limits. Affect flat, mood depressed. Thoughts linear, logical, no signs of hallucinations or delusions. Client Response/Progress/Benefit: []Client responded well to session, quiet, but participating in small group discussion. Group identified the benefits to setting boundaries as well as the consequences of not setting healthy boundaries. Benefits included: improved mental wellness, improved self-worth, self-love, less stress, less resentment, and avoid being taken advantage of. Group discussed the consequences of not setting boundaries which included: worsening mental health, lack of progress, and staying stuck in unhelpful situations. Client shared he struggles with setting boundaries in relationships that take more than they give. Client engaged during discussion of the different types of boundaries and engaged in the self-assessment activity. Client able to recognize his own mental health suffers when he does not set boundaries. Client seemed to benefit from increased awareness how poor boundaries can negatively impact mental health. Client to continue IOP tx to better manage intrusive thinking that causes anxiety.
--- NOTE | 2019-02-13 12:47 | BH.MDN_ITS ---
Multi-Disciplinary Note - Note 60-min Individual Time Started:: 11:00 Date: 02/13/19 Purpose of session/treatment goals addressed:: Reviewed current symptoms. Pt had reported 2/5 for sucidal thoughts and 0/5 for intent this AM on daily symptoms tracker. This is the first time he has noted any of these types of thoughts. Met to compelte risk assessment. Eye Contact:: Poor Motor Activity:: Restless Appearance:: Casual Speech:: Appropriate Mood:: Depressed Affect:: Flat Thoughts:: Linear, Logical, No evidence of hallucinations/delusions noted Staff Interventions:: Allowed pt to vent. Challenged cognitive distortions and negative automatic thoughts. Modeled skills. Crisis planned. Client Response:: Pt reports that he reached out to his [id number] via text yesterday to perhaps meet to discuss recent relationship conflict with his . Kvoopu-[id number] responded negatively and declined to meet stating according to pt you would not like what I would have to say. Pt has been ruminating about this interaction and the what ifs and possible scenarios this could mean. Ruminating thoughts and cognitive distortions have led to pt predicting the future negatively. Believes that his is going to divorce him, he will lose his job, and he will have to move out. He talked with about this reaction from [id number]-we-uji and she was supportive stating I'm sorry about that. Interactions and communication with continue to be positive this week. Pt notes that he has been following through with managing his emotions and being a good parent and . No conflicts. However pt continues to focus on worst case scenario. This led to passive thoughts of I've been thinking about being ... I don't think I could go on without her. Completed CSSR- screener which indicates low risk. Pt admits to wishing he was or going to sleep and not waking up. Denies any thoughts of suicide or suicidal ideations. Denies any plan, intent, or thoughts of methods. No hx of attempts. Protective factors are his children, his , his parents, his siblings, and his denominational. Future-oriented. Pt states Mauro, I would never do anything to hurt myself. States that he was upset due to situational stressor with [id number]. Passive suicidal thoughts are based on if he gets a divorce. Currently no indication of that as is currently living in the house, has not asked him for one, and they have appt this afternoon with consulting database administrator for marriage counseling. Completd crisis plan with patient which included crisis numbers to call. Encouraged ER if SI occurs. After processing the event pt reports I feel much better. Insight that he allowed an isolated event to consume his thinking. We discussed ways to address this if it occurs again. Risks/Concerns:: refer above. Does not present as imminent risk to self due to no active suicidal ideations, plan, intent or hx of attempts. Nothing was verbalized which would indicate involuntary admission or ER evaluation. Progress Toward Goals/Plan:: Limted progress. He continue to struggle with utilizing skills learned outside of IOP. Utilizes reassurance and pep talks from support rather than attempting skills. Not challenging thoughts or utilizing any external/internal skills. Despite numerous attempts by staff pt continues to revert to reassurance to calm overwhelming thoughts. Continues to view worrying about a problem as action to solve the problem. Need to control and get immediate resolution to problems exacerbate mood and healthy anxiety. Currently relationship is viewed as crisis. Last 2 sessions pt has not focused on health anxiety. Today was first mention of passive SI as he feels marriage is on shaky ground. Notes is distant and does not communicate her needs. Ch ronic relationship conflict. Offered marriage counseling in IOP, however pt declines. Also does not wish for me to call and talk with . While health anxiety has improved current concerns with marriage have caused exacerbation. Will continue in IOP to maintain safety, stablize, and prevent decompensation. Time Stopped:: 12:00
--- NOTE | 2019-02-14 10:15 | BH.SGPN.GN ---
Behaviors/Verbalizations/Mental Status: [] Eye contact is good. Motor activity is appropriate. Appearance is neat. Speech is Appropriate. Mood is depressed. Affect is flat. Thoughts are linear and logical. No evidence of psychosis Client Response/Progress/Benefit: [] Pt participated at times during group discussion and activity. Attentive during psycho-education. Worked with group to define stress. Group settled on the definition of a reaction to change. Group also identified warning signs to stress and had a discussion on how certain types of stressors can actually be beneficial. Attentive during psycho-education on Eustress (motivates, encourages growth) and distress (overwhelmed, hopelessness, low energy, anger, worry). Pt was given a worksheet in which she identified the current stressors and their impact on her life and her mental health which she shared with the group. Narrative Note: []
--- NOTE | 2019-02-14 11:15 | BH.SGPN.GN ---
Behaviors/Verbalizations/Mental Status: [Client alert and oriented, casual appearance and neat grooming. Eye contact good. Motor activity appropriate. Speech within normal limits. Affect constricted, mood dysthymic and anxious. Thoughts linear, logical, no signs of hallucinations or delusions.] Client Response/Progress/Benefit: [Pt engaged in session as evidenced by pt listening attentively to others, taking notes, and providing some input throughout session. Pt worked with the group to complete the challenge activity and appeared to increase engagement by doing so. He took on more of a leadership role which is indicative of progress. Pt was able to identify barriers encountered that may also impact managing stress in daily life, indicating that communication can be a barrier to managing stressors. Pt actively listening during discussion about the 4 A's of managing stress. Identified he will focus on altering his approach to coping with current stressors by spending more time journaling, exercising, and getting outdoors. Pt seemed to benefit from increased awareness of the impact of stress on mental health and increasing repertoire of stress management strategies. Pt to continue in IOP to prevent decompensation, continue promote use of healthy coping skills, and improve ability to challenge and cope with thoughts causing anxiety.] Narrative Note: []
--- NOTE | 2019-02-14 11:51 | BH.MDN_ITS ---
Multi-Disciplinary Note - Note 45-min Individual Time Started:: 09:10 Date: 02/14/19 Purpose of session/treatment goals addressed:: Due to severity of symptoms yesterday met with pt again this AM. Eye Contact:: Fair Motor Activity:: Restless Appearance:: Casual Speech:: Appropriate Mood:: Anxious, Depressed Affect:: Congruent Thoughts:: Linear, Logical, No evidence of hallucinations/delusions noted Staff Interventions:: Reviewed and modeled healthy coping skills. Developed list of realistic thoughts and affirmations to tell himself to avoid unhealthy coping. Client Response:: Notes improved mood since yesterday. Thoughts and emotions are not as intense. Denies any suicidal ideations or passive thoughts of . Believes that pastoral counseling went well yesterday. Continues to ruminate on status of the relationship and is fearful things will not get better. Insight and awareness that he has and continues to make positive changes. Reports that stated that 9 y/o daughter told her that daddy is much better. Effort is noted. Battling impulse to try and gain control and seek reassurance from and in-laws. Wants to know what 's intentions are with the relationship. Awareness that in the past seeking reassurance and control have resulted in irritability, anger, anxiety, conflict, and ultimately no resolution. Praised from not seeking this clarification this AM and allowing his space (which i s what she requested). Wants to focus on what he can control however he notes seems impossible not to seek control and reassurance. We wrote down list of things to tell himself when he has this urges. Risks/Concerns:: none noted. More hopeful today. Progress Toward Goals/Plan:: Progress noted in the past few weeks however as noted in the past he struggles to utilize skills when frustrated and stressed and reverts to unhealthy coping which is reassurance and control. Improved impulse control and thinking before reacting noted yesterday and this AM. Will continue in IOP to provided support through marriage crisis. We talked about discharge either next week or week after as currently healthy anxiety is minimal and current symptoms are better managed in outpatient indv/couples counseling rather than through group counseling Time Stopped:: 10:00
== END 2019-02-17 23:59 ==
LOC: BHIOP 09:00
PROVIDERS: Family Provider Family Medicine; PCP Family Medicine; Referring Provider Psychiatry & Neurology Psychiatry; Visit Provider Psychiatry & Neurology Psychiatry
DX: F33.2 Major depressive disorder, recurrent severe without psychotic features (principal); F41.1 Generalized anxiety disorder
CPT/HCPCS: H0035; 90832; 90834; 90837; 90853

== ENCOUNTER 2019-02-18 09:00 | Outpatient (RCR) | payer OTHER, SELFPAY ==
--- NOTE | 2019-02-18 10:10 | BH.SGPN.GN ---
Behaviors/Verbalizations/Mental Status: []Client alert and oriented, neatly dressed and groomed. Eye contact good. Motor activity appropriate. Speech within normal limits. Affect flat, mood anxious. Thoughts linear, logical, no signs of hallucinations or delusions Client Response/Progress/Benefit: []Client active participant in group AEB client participating in discussion and activity. Group worked together to identify barriers to making changes or taking action in their lives which included: fear of the unknown, the perception of others, fear of leaving one?s comfort zone, fear of getting help, and lack of motivation. Client shared loss of control is the most difficult barrier to change for him. Group also identified the benefits of change which included; improved relationships, improved mental wellness, increased confidence, and feelings of accomplishment. Client shared things he wants to take control over which included: giving up control, fearing what other people think, high expectations, negative self-talk, and anxiety. Benefited from group through awareness of personal areas he wants to improve and benefits to taking action towards mental wellness. To continue IOP level of care to promote use of distress tolerance skills to better manage anxiety.
--- NOTE | 2019-02-18 10:21 | BH.MDN_ITS ---
Multi-Disciplinary Note - Note 45-min Individual Time Started:: 09:00 Date: 02/18/19 Purpose of session/treatment goals addressed:: Assessed current symptoms and reviewed progress in IOP. Addressed treatment plan goals 1 and 2. Eye Contact:: Good Motor Activity:: Appropriate Appearance:: Neat Speech:: Appropriate Mood:: Anxious Affect:: Congruent Thoughts:: Linear, Logical, No evidence of hallucinations/delusions noted Staff Interventions:: Praised pt for his efforts. Worked with patient to identify more affirmations and ways to challange certain thoughts. Client Response:: Pt reports that his weekend went well.Being proactive with his skills and is less impulsive and frustrated. Utilizing some internal coping skills to reframe and challenge thoughts associated with [id number]. Verbalized that she is taking up less space inside my head. He states that he is focusing on what he can control which are his actions and emotions. Reports increased acceptance and patience. Reviewed several events highlighting that trevon jeffries his intial reaction was to gain control or seek answers he choose to accept and be patient. In these situations the end result was positive. Correlating new skills with positive results which increases motivation and willingness to use these skills. Relationship with and children is improving in his eyes noting that he made his laugh over the weekend. More hopeful about the future. States bubba feels less stressed due in large part to his change in perception and actions. Admits to a 3 hour period of intense rumination in which he sought reassurance from 2 supports however did not follow through with urge to seek control or text numerous times. Risks/Concerns:: no risks noted. Progress Toward Goals/Plan:: Progress noted. Pt notes increased conflict resolution skills and has not responded irrationally in the past week to health anxiety, uncertainty, or lack of control. Improved anger mgmt skills which is positively impacting his relationship with and kids. Following through and utilizing healthy skills. Completed DSM-5 crossing cutting scales which shows a 60% reduction on symptoms since starting the program. 50% reduction in anxiety scores and a 63% reduction in psychomatic symptoms. 20% reduction in depressive scores. Plan is to discharge from IOP next week. Will continue in IOP to maintain gains, provide support, and prevent decompensation. Time Stopped:: 09:45
--- NOTE | 2019-02-18 10:47 | BH.TPR ---
Treatment Plan Review Date of Admission:: 01/15/19 Date of Treatment Plan Review:: 01/15/19 Admitting Diagnoses:: MDD. Illness Anxiety Disorder. Diagnosis Code(s):: F33.2; F45.21 Current Diagnoses:: MDD. Illness Anxiety Disorder. Diagnosis Code(s):: F33.2; F45.21 Patient's Response to Treatment:: Pt has attended the program consistently. Moderate participation in group setting. Initally pt struggled to incorporate healthy coping skills into his distress management often reverting back to unhealthy coping skills. Intrusive thoughts related to healthy anxiety significantly impacted daily functioning. Along with health anxiety pt was also going through relationship conflicts with . In the past 2 weeks pt has put considerably more effort into applying skills learned outside of group and has begun to see the positive impact of this. More proactive regarding healthy skills. Decreased anger, less focus on health anxiety, and improve relationship with and kids. Completed DSM-5 crossing cutting scales which shows a 60% reduction on symptoms since starting the program. 50% reduction in anxiety scores and a 63% reduction in psychomatic symptoms. 20% reduction in depressive scores. Status of Current Problems and Symptoms: Pt notes decrease in frequency, duration, and severity of both anxiety and depression. Problem #1 Problem Name:: Anxiety Status of Goals:: 50% reduction in anxiety scores and a 63% reduction in psychomatic symptoms. Obj 1- Pt has developed a proactive plan regarding anxiety. obj 2.- Pt has developed a partial list of coping skills, however is utilizing the skills despite not having a list. Team Recommendations:: Due to current reduction in scores and increased stablization recommending discharge next week. Problem #2 Problem Name:: Depression Status of Goals:: Overall pt was noted to have a 20% reduction in DSM-5 depression scores. obj 1.- Able to identify triggering thoughts to depression. Has almost gone a week w less than 2 irrational reactions to an event. obj 2.- Improved conflict resolution skills.
--- NOTE | 2019-02-20 09:05 | BH.SGPN.GN ---
Behaviors/Verbalizations/Mental Status: [] Eye contact is good. Motor activity is appropriate. Appearance is casual. Speech is Appropriate. Mood is euthymic. Affect is full. Thoughts are linear and logical. No evidence of psychosis. Reviewed daily check in sheet and no reports of suicidal ideations or intent. Client Response/Progress/Benefit: [] Pt participated at times during the group discussion. Pt states I'm not anxious today. Shared with the group that he actually feels normal. Had a good day at work yesterday and felt engaged and functioning. Discussed some parenting stress and how the impacts his MH. Progress noted. Benefited from group encouragement, support, and feedback. Will continue in IOP to maintain gains and prevent decompensation. Narrative Note: []
--- NOTE | 2019-02-20 10:05 | BH.SGPN.GN ---
Behaviors/Verbalizations/Mental Status: []Client alert and oriented, casual dress, hygiene tended to. Eye contact good. Motor activity appropriate. Speech within normal limits. Affect congruent, mood anxious. Thoughts linear, logical, no signs of hallucinations or delusions. Client Response/Progress/Benefit: []Pt engaged in session as evidenced by pt listening to others and providing input throughout. Pt stated running away is a long road, which he explained means running away from problems gets one further away from a solution. Pt reported he avoids dealing with problems because the thought of an unfavorable outcome is too scary. Pt stated his expectation that when he faces a problem he expects a positive outcome, which he recognizes is unrealistic. Pt worked cooperatively with peers during problem solving activity, able to work through problem by using A,B,C,D,E problem solving method. Pt seemed to benefit from learning about problem solving method and rehearsing problem solving skills in the moment. Pt to continue IOP level of care to decrease anxiety, increase utilization of healthy coping, and prevent decompensation. Narrative Note: []
--- NOTE | 2019-02-20 12:03 | BH.MDN ---
Multi-Disciplinary Note - Note 45-min Individual Time Started:: 11:00 Date: 02/20/19 Purpose of session/treatment goals addressed:: Reviewed current symptoms and progress in the program. Addressed treatment plan goals 1 and 2. Eye Contact:: Good Motor Activity:: Appropriate Appearance:: Neat Speech:: Appropriate Mood:: Anxious Affect:: Congruent Thoughts:: Linear, Logical, No evidence of hallucinations/delusions noted Staff Interventions:: Reviewed and processed recent events. Reinforced thought challenging and impulsive control strategies. Client Response:: Pt discussed being frustrated this AM due to a minor conflict with . He reviewed the conflict and noted that he had some thoughts along the lines of well I messed up I might as well just quit. Also reprots some thoughts and urges to start arguement with . He resisted these urges through thought challenging and reframing was able to resist. Able to verbalize that while a set-back it is not failure and this does not negate previous progress. He was able to challenge black and white thinking. Stated several times that he feels normal. Had a very good and engaged day at work. Believes that he is functioning more effectively at work and home. Health anxiety has subsided considerably. Smiling and joking during the session which he has never done in the past. Denies any irrational or consuming thoughts related to physical symptoms, in-laws, or his . Risks/Concerns:: No risks or concerns noted. Progress Toward Goals/Plan:: Progress noted. No irrational thought or reactions in over a week. Improved mood. Decreased anxiety. Notes feeling normal. Continues to utilize skills on consistent basis for the past week and is seeing results. Plan is to discharge from [facility] at next visit. Time Stopped:: 11:40
--- NOTE | 2019-02-27 09:10 | BH.SGPN.GN ---
Behaviors/Verbalizations/Mental Status: [] Eye contact is good. Motor activity is appropriate. Appearance is neat. Speech is Appropriate. Mood is anxious. Affect is congruent. Thoughts are linear and logical. No evidence of psychosis. Reviewed daily check in sheet and no reports of suicidal ideations or intent. Client Response/Progress/Benefit: [] Pt participated when prompted. Shared that today is his last day in IOP. Notes that he is gaining confidence and is recognizing his progress which he always had difficulty doing in the past. States external things/people don't have to control my thoughts and emotions. He talked about his struggles over the past 4 months and states I feel that I coming out stronger. He is not relying as much on reassurance from support. Feels that he has made significant changes in his life which is having a positive impact on him, his kids, and his relationship. Continues to deal with the uncertainty of his marriage however understands that its better to accept this rather than seek control over it. Progress noted per pt report. Benefited from group support and encouragement. Will be discharged today . Narrative Note: []
--- NOTE | 2019-02-27 10:10 | BH.SGPN.GN ---
Behaviors/Verbalizations/Mental Status: []Client alert and oriented, neatly dressed and groomed. Eye contact good. Motor activity appropriate. Speech within normal limits. Affect congruent, mood euthymic. Thoughts linear, logical, no signs of hallucinations or delusions. Client Response/Progress/Benefit: []Client active participant as shown by client?s contribution to discussion and engagement in activity. Client agreed with peers that self-care is important because ?life isn?t sustainable without it.? Client reported one cannot take care of others if they do not take care of themselves. Client participated in the discussion of the common myths about self-care including self-care is selfish, self-indulgent, take too much time, and always fun. Group gave examples of self-care activities such as setting boundaries, taking medication, going to therapy, and admitting one needs help. Client engaged in activity and able to connect how sometimes to make self-care a priority, a person must set boundaries in other areas of their lives. Client seemed to benefit from increased awareness of the importance of self-care. Client to discharge from [facility] today as he has made significant progress towards his treatment goals and no longer meets criteria for [facility] level of care.
--- NOTE | 2019-02-27 10:56 | BH.AFTERPLAN ---
Aftercare Plan - Demographics Treatment End Date:: 02/27/19 Psychiatrist:: Briseyda Lee Psychiatrist Office #:: [phone] PHP/IOP Therapist:: Mauro Branch Therapist Phone #:: [phone] - Medications Home Medications: Home Medications Gabapentin [Neurontin] 600 mg PO TID 01/03/19 Paroxetine HCl [Paxil] 40 mg PO DAILY 01/03/19 Quetiapine Fumarate [Seroquel] 200 mg PO QHS 01/03/19 hydrOXYzine pamoate capsule [Vistaril pamoate capsule] 50 mg PO TID PRN PRN 01/03/19 - Plan Details Progress/Aftercare Plan Details:: Paddy has made significant progress in IOP. Completed DSM-5 crossing cutting scales which shows a 60% reduction on symptoms since starting the program. Most notably a 50% reduction in anxiety scores and a 63% reduction in somatic symptoms. Paddy also showed a 20% reduction in depressive scores. Overall Paddy attended the program consistenly and put substantial effort into working on improving his mental wellness. Strategies for Success:: 1. There is a difference between a setback and complete failure. 2.Patience and acceptance are not signs of weakness or failure they are signs of increased awareness. 3. Your body is not a ticking time bomb but a vessel to enjoy your life, your family, and nature. - Appointments Appointments/Referrals to Other Services:: Appointment with Fab Camacho on 03/11/19 at 9am and on 02/16/[address]. [address] Gibbs at 03/05/19 at 2:45pm
--- NOTE | 2019-02-27 11:22 | BH.DS_ITS ---
Discharge Summary - Demographics Date of Admission:: 01/15/19 Discharge Date: 02/27/19 Presenting Problems at Admission:: Pt is a 38 year old male with hx of MDD, LINDSEY, and Hypochrondriasis. Recently discharged from [facility] on 12/30/18. Was admitted on 12/25/18 due to worsening severity of obsessive intrusive thoughts reagrding his health, specifically that he has cancer. Anxiety led to depression, crying spells, decreased sleep, decreased appetite, and impaired functioning. Has not been able to function at home or work due to obsessive thoughts. Convinced that he has colon cancer despite physicians and diagnostic tests indicating no concern. Poor energy, poor concentration, decreased motivation, decrease in ADLs, panic attacks, and poor appetite. Denies HI or psychosis. Denies substance abuse. Denies sucidal ideations, plan, or intent. No hx of attempts. Per [facility] pt disclosed fleeting thought to OD on medications. Pt denies this was suicidal ideation just fleeting passive thoughts. Discharge Diagnoses:: Major depressive disorder recurrent severe without psychosis. Illness anxiety disorder. Generalized anxiety disorder, Reason for Discharge:: Met all treatment plan goals. No longer meets criteria for IOP level of care. - Treatment Progress During Treatment & Response: Pt has attended the program consistently. Moderate participation in group setting. Initally pt struggled to incorporate healthy coping skills into his distress management often reverting back to unhealthy coping skills. Intrusive thoughts related to healthy anxiety signific antly impacted daily functioning. Along with health anxiety pt was also going through relationship conflicts with . In the past 2 weeks pt has put considerably more effort into applying skills learned outside of group and has begun to see the positive impact of this. More proactive regarding healthy skills. Decreased anger, less focus on health anxiety, and improve relationship with and kids. Completed DSM-5 crossing cutting scales which shows a 60% reduction on symptoms since starting the program. 50% reduction in anxiety scores and a 63% reduction in psychomatic symptoms. 20% reduction in depressive scores. On discharge notes improved mood and being more hopefull about his quality of life and his relationship. Issues Still to be Addressed:: Relationship struggles, health anxiety, and mood management. Discharge Recommendations/Instructions:: Recommended to follow up with therapist and psychiatrist. Appointment with therapist Fab Camacho on 03/11/19 at 9am and on 02/16/[address] Gibbs at 03/05/19 at 2:45pm Discharge Handout: Complete Discharge Handout with client on aftercare options and continuity of care.
== END 2019-03-20 23:59 ==
LOC: BHIOP 09:00
PROVIDERS: Family Provider Family Medicine; PCP Family Medicine; Referring Provider Psychiatry & Neurology Psychiatry; Visit Provider Psychiatry & Neurology Psychiatry
DX: F33.2 Major depressive disorder, recurrent severe without psychotic features (principal); F41.1 Generalized anxiety disorder
CPT/HCPCS: H0035; 90834; 90853